=== PATIENT | female | born 1975 | race Caucasian/White ===

== ENCOUNTER 2020-10-20 09:43 | Emergency (ER) | payer BC, SELFPAY ==
[2020-10-20 09:45] VITALS: BP 165/97; PULSE 101; RESP 14; TEMP 37.2; O2SAT 99; BMI 38.0
--- NOTE | 2020-10-20 09:58 | HMH.EDUTC ---
[facility] Disposition Clinical Impression: Exposure to COVID-19 virus Sinusitis Qualifiers: Sinusitis location: unspecified location Chronicity: acute Recurrence: non-recurrent Qualified Code(s): J01.90 - Acute sinusitis, unspecified Disposition: Home, Self-Care Condition on Discharge: Good Instructions: Sinusitis, DI for Sinusitis, Preventing the Spread of Coronavirus Discharge Instructions Additional Instructions: Drink plenty of fluids. Take tylenol for pain or fever. Return if you begin to have difficulty breathing. Follow up with your regular doctor. GO TO THE ER FOR ANY WORSENING SYMPTOMS Prescriptions: Benzonatate [Tessalon Perle 100mg Cap] 100 mg PO TIDP PRN #30 cap PRN Reason: Cough Transmission Status: Received by [facility] Azithromycin [Z-Nick 250mg Tab*] 250 mg PO UD DOSE PK #6 tab Transmission Status: Received by [facility] Referrals: PCP,No [Primary Care Provider] - Forms: Work/School Release Time of Disposition: 10:14 Medical Decision Making - Medical Records Medical records reviewed: No: I reviewed the patient's medical records. - Dimas Inquiry Pt receiving controlled substance: No Vital Signs: 10/20/20 09:45 10/20/20 10:26 Temperature 98.9 F 98.9 F Temperature Source Oral Pulse Rate 101 H Pulse Rate [Right Brachial] 101 H Respiratory Rate 14 14 Blood Pressure 165/97 H Blood Pressure [Right Arm] 165/97 H Blood Pressure Mean [Right Arm] 119 Blood Pressure Source [Right Arm] Automatic Cuff Blood Pressure Position [Right Arm] Sitting 02 Sat by Pulse Oximetry 99 Oxygen Delivery Method Room Air Orders (Tests/Meds): ORDERS Category Date Time Status Covid-19 Nasal PCR ([facility]) Routine Lab 10/20/20 10:00 Received [facility] HPI - General Stated complaint: sinus possible bronchitis Time Seen by Provider: 10/20/20 09:58 Mode of Arrival: Wheelchair - History of Present Illness Provider Complaint: She states that she has had sinus congestion, bilateral ear pain, cough and chest congestion for the past 3 days. She had a negative covid test [facility] on [facility] (2 days ago). - Related Data Home Medications Medication Instructions Recorded Confirmed hydrocodone 7.5 mg-acetaminophen 1 tab PO Q6H PRN 04/12/18 10/20/20 300 mg tablet Nabumetone 750 mg PO BID 02/24/19 10/20/20 Previous Rx's Medication Instructions Recorded Azithromycin [Z-Nick 250mg Tab*] 250 mg PO UD DOSE PK #6 tab 10/20/20 Benzonatate [Tessalon Perle 100mg 100 mg PO TIDP PRN #30 cap 10/20/20 Cap] Allergies Allergy/AdvReac Type Severity Reaction Status Date / Time No Known Allergies Allergy Verified 02/24/19 19:05 [facility] History - Hepatitis A Screen Attestation statement:: This patient has been screened for Hepatitis A risk factors. I have reviewed the patient's past medical history: Yes Medical History: Reports:: Urinary Tract Infection Comment: back pain, sciatica Laterality Cases: Bilateral: Carpal Tunnel Release Amputation: No Fractures: No - Social History Smoking Status: Current every day smoker Tobacco Type: cigarettes # Packs/Day (cigarettes): 1 Alcohol Intake: never Substance Use Type: denies use Occupational Status: employed Family Hx:: Diabetes ROS Obtained: Yes All systems reviewed & no additional complaints - Constitutional Constitutional: Reports system reviewed and no additional complaints, except as docu - Eyes Eyes: Reports system reviewed and no additional complaints, except as docu - ENT Ears, Nose, Mouth, and Throat: Reports system reviewed and no additional complaints, except as docu - Cardiovascular Cardiovascular: Reports system reviewed and no additional complaints, except as docu - Respiratory Respiratory: Reports system reviewed and no additional complaints, except as docu - Gastrointestinal Gastrointestingal: Reports: system reviewed and no additional complaints, except
[2020-10-20 10:26] VITALS: BP 165/97; PULSE 101; RESP 14; TEMP 37.2; O2SAT 99
== END 2020-10-20 10:30 | disposition home or self-care (01) ==
PROVIDERS: Emergency Provider Nurse Practitioner Family
DX: Z20.822 Contact with and (suspected) exposure to COVID-19 (principal); J01.90 Acute sinusitis, unspecified; F17.210 Nicotine dependence, cigarettes, uncomplicated
CPT/HCPCS: 99202; G0463; U0003

== ENCOUNTER → 2021-04-17 15:06 | Outpatient (CLI) | payer BC, SELFPAY ==
--- NOTE | 2021-04-17 15:07 | MM_ITS ---
PROCEDURE: MM DIG SCREENING MAMM BI W/CAD Digital Breast Tomosynthesis Included CLINICAL INDICATION: Routine Screening Mammogram There is a history of breast patient's paternal grandmother. COMPARISON: MG CONRAD DIGITAL SCREEN BILATERAL MOBILE from 03/02/2018 outside study MG CONRAD NASH DIGITAL SCREEN BILATERAL from 03/14/2019 outside study TECHNIQUE: Standard CC and MLO images and 3D Tomosynthesis was obtained. R2 CAD reviewed. FINDINGS: Moderate scattered fibroglandular densities are seen throughout both no CAD markings. There is a benign-appearing macrocalcification right breast. There is a stable benign-appearing nodular density upper-outer quadrant right breast likely an intramammary node. There is no suspicious lesion in either breast and no suspicious microcalcifications. IMPRESSION: Moderate breast density with no suspicious lesions seen BI-RAD Category: 2 Benign Finding(s) FOLLOW-UP: 1YR 1 Year Follow-up (A letter has been sent to the patient regarding results of the study.) Dictated by: Dr. Jesus Flaherty MD 04/29/2021 07:48 Dr. Jesus Flaherty MD in [place] 04/29/2021 07:48
--- NOTE | 2021-04-17 15:07 | US_ITS ---
PROCEDURE: US TRANSVAGINAL CLINICAL INDICATION: LLQP and ovarian cyst Left-sided pelvic pain COMPARISON: US PTV US PELVIS-TRANSVAGINAL ONLY from 07/12/2016 FINDINGS: UTERUS: 8cm x 5cmx 4cm with a combined endometrial thickness of 11.4mm LEFT OVARY: [id number] with a volume of 10.5ml. RIGHT OVARY: [id number] with a volume of 6.8ml. There is a 1.8 cm left ovarian cyst with a small amount fluid along the anterior aspect of the left ovary. Hypoechoic 1.4 cm lesion noted in the uterine fundus anteriorly consistent with a fibroid. Heterogeneous area of echogenicity noted posteriorly within the body of the uterus at 1.4 cm consistent with a fibroid IMPRESSION: Two uterine fibroids. Endometrial thickness upper limits of normal. Small left ovarian cyst with a small amount of fluid adjacent to the left ovary Dictated by: Wei Laureano MD 04/20/2021 07:37 Wei Laureano MD in [place] 04/20/2021 07:37
== END ==
PROVIDERS: Visit Provider Nurse Practitioner Obstetrics & Gynecology
DX: R10.32 Left lower quadrant pain (principal); N83.209 Unspecified ovarian cyst, unspecified side; Z12.31 Encounter for screening mammogram for malignant neoplasm of breast
CPT/HCPCS: 76830; 77063; 77067

== ENCOUNTER 2021-04-22 10:33 | Emergency (ER) | payer BC, SELFPAY ==
[2021-04-22 10:42] VITALS: BP 148/93; PULSE 94; RESP 19; TEMP 36.9; O2SAT 96; BMI 38.0
[2021-04-22 10:56] LABS: Apearance,Urine Clear (Clear); Blood, Urine 2+ (Negative); Color,Urine Yellow (Yellow); Glucose,Urine (UA) Negative (Negative); Ketones,Urine Negative (Negative); Protein,Urine Negative (Negative)
[2021-04-22 10:57] LABS: Bilirubin,Urine Negative (Negative); UTC Leukocyte Esterase,Urine Negative (Negative); UTC Nitrate,Urine Negative (Negative); Urobilinogen,Urine 0.2 EU/dl (0.2)
--- NOTE | 2021-04-22 11:00 | HMH.EDUTC ---
[facility] [place] [facility] [place] Clinical Impression: Side pain Disposition: Home, Self-Care Condition on Discharge: Good Instructions: Ovarian Cyst, DI for Flank Pain Additional Instructions: Make sure to follow up with Dr Baig to discuss the finding on your ultra sound and mammogram Follow up with your Urologist for further testing and evaluation of cysts on Kidney Straight to ER if any life threatening symptoms Follow up with your Family Doctor if no improvement or any worsening of symptoms Return if needed Referrals: Provider,MD Martín [Primary Care Provider] - As needed Deven Fernandez MD [Staff Physician] - Danial Baig MD [Staff Physician] - Time of Disposition: 11:25 Medical Decision Making - Dimas Inquiry Pt receiving controlled substance: No Dimas was queried for this patient: No Vital Signs: 04/22/21 10:42 04/22/21 11:27 Temperature 98.5 F 98.4 F Temperature Source Oral Pulse Rate 89 Pulse Rate [Left] 94 H Respiratory Rate 19 18 Blood Pressure 139/93 H Blood Pressure [Right Arm] 148/93 H Blood Pressure Mean [Right Arm] 111 02 Sat by Pulse Oximetry 96 - Lab Data Lab results reviewed: Yes: I reviewed the patient's lab results. Lab Results 04/22/21 10:44: Urine Color Yellow, Urine Appearance Clear, Urine pH 7.0, Ur Specific [place] 1.020, Urine Protein Negative, Urine Glucose (UA) Negative, Urine Ketones Negative, Urine Blood 2+, Urine Nitrate Negative, Urine Bilirubin Negative, Urine Urobilinogen 0.2, Ur Leukocyte Esterase Negative Medical Decision Narrative: Patient reports history of blood in her urine States that she is suppose to see Urologist but hasnt seen them in awhile discussed with patient about transfer to the ED for further work up and evaluation and CT if warranted and patient declined state that she wanted to see if she had a UTI and would follow up with Dr Baig and Urology for further treatment and would return if needed [facility] [place] [facility] [place] - General Stated complaint: pain in left side Time Seen by Provider: 04/22/21 11:00 Mode of Arrival: Ambulatory Source of Information: Patient Limitations: No Limitations Description of Symptoms (Recalled from Triage Doc. by RN): pt c/o LLQ and ovary pain. pt states she had an ultrasound tuesday ordered by Dr. Baig but has not received the report yet. pt has a hx of ovarian cysts and states this feels similar. HEENT Symptoms (Recalled from RN notes): No Resp Symptoms (Recalled from RN notes): No Skin Symptoms (Recalled from RN notes): No MS Symptoms (Recalled from RN notes): No Functional Status (Recalled from RN notes): na - History of Present Illness Provider Complaint: Patient state that she has been having pain in her left side and left lower quad area like she has had before with Ovarian Cyst States that she has history of ovarian cyst and this pain is similar to what she has had before State that last night she was up most of the night with the pain but pain is better this morning wanted to get her urine checked to see if she may have a Kidney infection - Related Data Home Medications Medication Instructions Recorded Confirmed hydrocodone 7.5 mg-acetaminophen 1 tab PO Q6H PRN 04/12/18 04/14/21 300 mg tablet Nabumetone 750 mg PO BID 02/24/19 04/14/21 Allergies Allergy/AdvReac Type Severity Reaction Status Date / Time Penicillins Allergy Verified 04/22/21 10:47 - Worker's Comp Is this a Worker's Comp case?: No [facility] History - Hepatitis A Screen Drug use history?: No High risk sexual behaviors?: No History of sexually transmitted infection?: No Currently employed?: No Childcare worker?: No Do you have indoor plumbing?: Yes Do you have electricity?: Yes Attestation statement:: This patient has been screened for Hepatitis A risk factors. I have reviewed the patient's past medical history: Yes Medical History: Reports:: Urinary Tract Infection Comment: back pain, sciatica Laterality Cases: Bilateral: Carpal Tu
[2021-04-22 11:27] VITALS: BP 139/93; PULSE 89; RESP 18; TEMP 36.9
== END 2021-04-22 11:33 | disposition home or self-care (01) ==
PROVIDERS: Emergency Provider Nurse Practitioner
DX: R10.32 Left lower quadrant pain (principal); Z88.0 Allergy status to penicillin; F17.210 Nicotine dependence, cigarettes, uncomplicated
CPT/HCPCS: 81003; 99202; G0463

== ENCOUNTER → 2021-05-01 06:40 | Outpatient (CLI) | payer BC, SELFPAY ==
--- NOTE | 2021-05-01 06:43 | CT_ITS ---
PROCEDURE: CT ABDOMEN PELVIS WO CON CLINICAL INDICATION: HEMATURIA,FLANK PAIN COMPARISON: No exams were available for comparison TECHNIQUE: Axial images obtained with sagittal and coronal reformats. All CT scans at the facility use one or more dose reduction, viz: automated exposure control, ma/kV adjustment per patient size (including targeted exams where dose is matched to indication, i.e. head), or iterative reconstruction technique. FINDINGS: LOWER THORAX: There is a cyst in the right lung base. Otherwise the visualized lung bases are clear. ABDOMEN & PELVIS: Evaluation of the upper abdominal solid viscera is limited due to lack of intravenous contrast. The liver, adrenal glands, pancreas and right kidney are unremarkable. The left kidney demonstrates a focal hypodense lesion with minor rim calcification in the superior pole measuring 2.2 x 2.4 centimeters, most likely represents a cyst. No evidence of calculi in the bilateral ureters or pelvicalyceal system. No hydronephrosis. Bladder is under distended limiting evaluation. Multiple splenic calcifications are noted, likely sequela of prior granulomatous disease. Colonic diverticula are noted without evidence of diverticulitis. Otherwise the large and small bowel loops demonstrate no focal wall thickening, obstruction or adjacent inflammatory changes. The appendix is normal. The uterus and pelvic structures are unremarkable. Atherosclerotic vascular calcification is noted. No significant mesenteric or retroperitoneal adenopathy. Small fat containing umbilical hernia is noted. Minor degenerative changes of the lower lumbar spine. IMPRESSION: No evidence of renal or ureteric calculi. Focal hypodense lesion in the left kidney with rim calcification, raises the concern for complex cyst. Ultrasound of the kidney should be considered for further evaluation. Colonic diverticula without evidence of diverticulitis. Dictated by: Margo Weaver 05/01/2021 08:42 Margo Weaver in [place] 05/01/2021 08:42
== END ==
PROVIDERS: Visit Provider Urology
DX: R10.9 Unspecified abdominal pain (principal); R31.9 Hematuria, unspecified
CPT/HCPCS: 74176

== ENCOUNTER → 2021-05-06 13:13 | Outpatient (CLI) | payer BC, SELFPAY | PROVIDERS: Visit Provider Urology | DX: Z20.822 Contact with and (suspected) exposure to COVID-19 (principal) | CPT/HCPCS: U0003 ==

== ENCOUNTER 2021-05-08 08:15 | Day surgery (SDC) | payer BC, SELFPAY ==
[2021-05-06 10:27] VITALS: BMI 38.0
[2021-05-08] VITALS (9 sets, daily range): BP systolic 120–164; BP diastolic 74–98; PULSE 64–76; RESP 12–18; TEMP 36.1–36.6; O2SAT 94–99
[2021-05-08 09:10] LABS: HCG Qualitative, Serum Negative (Negative)
--- NOTE | 2021-05-08 11:14 | HMH.ANESCL ---
[facility] Anesthesia Checklist - Structural Data Admitted From: Home Planned Operative Procedure/s: cysto w urethral dilation Consent for Planned Operative Procedure(s) Verified: Yes - Additional verifications Anesthesia Reactions: No Hx Blood Transfusions: No Blood Transfusion Reaction: No - Airway Assessment C-Spine Mobility Assessed: Yes TMJ Mobility Assessed: Yes Dentition: Good Dentition - Neurological Assessment Level of Consciousness: Awake, Alert, Appropriate - Anesthesia Plan Anesthesia Risk discussed: Yes Anesthesia Plan: Verified ASA Class: III Anesthesia Type: General [facility] History I have reviewed the patient's past medical history: Yes Medical History: Reports:: Urinary Tract Infection Denies:: Cancer, Diabetes Mellitus Type 1, Diabetes Mellitus Type 2, Internal Pacemaker, MRSA, Seizures *Have you ever received a pneumonia vaccine?: No *Have you received a flu vaccine this season?: No Other Medical History: Denies: Blood Transfusion Reaction Anesthesia experience/problems:: none Laterality Cases: Bilateral: Carpal Tunnel Release Other Surgeries: Yes: No Previous Surgery, Colonoscopy. No: Pacemaker Amputation: No Fractures: No - *Social History Last grade of school completed: High school graduate Smoking Status: Current every day smoker Tobacco Type: cigarettes # Packs/Day (cigarettes): 15 Alcohol Intake: current Alcohol Intake Frequency:: a few times a week Substance Use Type: denies use *Occupational Status:: employed Housing: house Household Members: spouse, family *Travel in the last 8 weeks: None Family Hx:: Diabetes, Hyperlipidemia, Hypertension
--- NOTE | 2021-05-08 11:15 | P.PN_ITS ---
[facility] Anesthesia Record Part I Intake, IV Amount: 500 Estimated blood loss (mL): 0 Urine output (mL): 0 Blood Pressure: 126/78 SaO2: 95 Pulse Rate: 64 Respiratory Rate: 12 Temperature: 97.8 F Patient is:: Awake, Stable Stable to PACU at:: 11:05
--- NOTE | 2021-05-08 13:03 | P.OP_ITS ---
Date of procedure: 05/08/21 Pre-op Diagnosis:: Urinary frequency, history of urethral stenosis, microscopic hematuria Post-op Diagnosis:: Chronic cystitis findings Procedure performed:: Cystoscopy with urethral dilation Surgeon:: Deven Fernandez MD PUBLIC WORKS DIRECTOR:: Rashaun Amanda Anesthesia: MAC Estimated blood loss (mL): 0 Clinical Note:: Patient is a 45-year-old white female with a history of urethral stenosis also has urinary symptoms of urinary frequency as well as microscopic hematuria. Operative findings:: There were a few 1 cm patches of erythema in the bladder. These did not appear to be carcinoma in situ that appeared inflammatory. Operative note:: Patient taken to the operating room after informed consent was obtained. She was placed on the operating table in the supine position and monitored anesthesia care administered. She was then placed into the dorsal lithotomy position and prepped and draped in the standard surgical fashion. After analgesia the 22 Khurram passed into the urethra and into the bladder without difficulty. The bladder was examined in a systematic fashion. There were some few small reddish patches in the bladder 1 superiorly, one inferiorly and the bilaterally. They were small and about 1 cm in size they were roundish but not raised. No trabeculation, cellules or diverticula noted. The ureteral orifices in their normal anatomic position with clear efflux of urine. The bladder neck and urethra were within normal limits. The scope removed and the urethra was then dilated with the 24 and 26 Sinhala female sounds. There was no resistance to passage of the sounds. Urojet then placed into the urethra. The patient tolerated procedure well there are no complications. Patient recent CT scan showed only a stable 2 cm cyst in her left kidney which has been there for many years. And been to place her on a course of Macrobid for a month and see her back in the office in 1 month. Condition: stable Disposition: same day Specimens:: None Complications:: None
--- NOTE | 2021-05-11 07:41 | HMH.ANESII ---
[facility] Anesthesia Record Part II Discharge Time: 11:35 Destination: Surgical Day Care (OP Surgery) PACU nurse assessment reviewed?: Yes Patient Condition:: Good Anesthesia Complications:: None Swallowing reflex intact?: Yes Cyanosis?: No Blood Pressure: 128/82 Pulse Rate: 71 Temperature: 97 F Mental Status: Alert & Oriented Pain level:: 0 Nausea and/or vomitting:: None Intake, IV Amount: 0
[2021-05-11 07:42] VITALS: BP 128/82; PULSE 71; TEMP 36.1
== END 2021-05-08 12:10 | disposition home or self-care (01) ==
LOC: OR 08:17
PROVIDERS: Visit Provider Urology
PROC: 0TJB8ZZ Inspection of Bladder, Via Natural or Artificial Opening Endoscopic (ICD-10-PCS; CPT 52000; principal; 2021-05-08 10:00)
DX: L53.8 Other specified erythematous conditions; N32.89 Other specified disorders of bladder; Z87.448 Personal history of other diseases of urinary system; Z72.0 Tobacco use; Z83.3 Family history of diabetes mellitus; Z82.49 Family history of ischemic heart disease and other diseases of the circulatory system; Z83.438 Family history of other disorder of lipoprotein metabolism and other lipidemia; Z88.0 Allergy status to penicillin
CPT/HCPCS: 52281; 84703; 96374

== ENCOUNTER → 2021-05-15 11:24 | Outpatient (CLI) | payer BC, SELFPAY ==
[2021-05-15 12:57] LABS: Triiodothryronine (T3) Uptake 33 % (23.5-40.5)
[2021-05-15 12:58] LABS: Free Thyroxine Index 2.8 ug/dL (5.93-13.13); T4 (Thyroxine) 8.4 ug/dl (5.53-11.0)
[2021-05-15 13:11] LABS: Thyroid Stimulating Hormone 1.11 uIU/mL (0.465-4.68)
[2021-05-16 08:29] LABS: Estradiol 48.6 pg/mL (.); FSH 43.3 mIU/mL (.); LH 33.6 mIU/mL (.)
== END ==
PROVIDERS: Visit Provider Nurse Practitioner Obstetrics & Gynecology
DX: N95.1 Menopausal and female climacteric states (principal); R53.83 Other fatigue; R53.82 Chronic fatigue, unspecified
CPT/HCPCS: 36415; 82670; 83001; 83002; 84436; 84443; 84479

== ENCOUNTER → 2021-06-23 16:56 | Outpatient (CLI) | payer BC, SELFPAY | PROVIDERS: Visit Provider Surgery | DX: Z20.822 Contact with and (suspected) exposure to COVID-19 (principal) | CPT/HCPCS: C9803; U0003; U0005 ==

== ENCOUNTER 2021-06-25 09:18 | Day surgery (SDC) | payer BC, SELFPAY ==
[2021-06-24 14:55] VITALS: BMI 38.0
[2021-06-25 09:42] VITALS: BP 127/69; PULSE 78; RESP 20; TEMP 36.6; O2SAT 97
[2021-06-25 10:00] LABS: Urine Pregnancy, HCG Qual. Negative (Negative)
--- NOTE | 2021-06-25 10:11 | HMH.ANESCL ---
[facility] Anesthesia Checklist - Patient Identification Patient Identification: Arm Band - Structural Data Admitted From: Home Planned Operative Procedure/s: colonoscopy Consent for Planned Operative Procedure(s) Verified: Yes Verified Documents: Surgical Consent, History and Physical - NPO Status Verified Time NPO: 00:00 - Additional verifications Anesthesia Reactions: No Hx Blood Transfusions: No Blood Transfusion Reaction: No - Airway Assessment C-Spine Mobility Assessed: Yes (mp2) TMJ Mobility Assessed: Yes Dentition: Good Dentition - Neurological Assessment Level of Consciousness: Awake, Alert - Anesthesia Plan Anesthesia Risk discussed: Yes Anesthesia Plan: Verified ASA Class: II Anesthesia Type: MAC [facility] History I have reviewed the patient's past medical history: Yes Medical History: Reports:: Urinary Tract Infection Denies:: Cancer, Diabetes Mellitus Type 1, Diabetes Mellitus Type 2, Internal Pacemaker, MRSA, Seizures *Have you ever received a pneumonia vaccine?: No *Have you received a flu vaccine this season?: Yes (2019) Other Medical History: Denies: Blood Transfusion Reaction Anesthesia experience/problems:: nac Laterality Cases: Bilateral: Carpal Tunnel Release Other Surgeries: Yes: Colonoscopy. No: Pacemaker Amputation: No Fractures: No - *Social History Last grade of school completed: High school graduate Smoking Status: Current every day smoker Tobacco Type: cigarettes # Packs/Day (cigarettes): 1 Alcohol Intake: never Alcohol Intake Frequency:: a few times a week Substance Use Type: denies use *Occupational Status:: unemployed Housing: house Household Members: none *Travel in the last 8 weeks: None Family Hx:: Diabetes, Hyperlipidemia, Hypertension
[2021-06-25 10:27] VITALS: O2SAT 97
[2021-06-25 11:11] VITALS: BP 134/87; PULSE 72; RESP 18; O2SAT 99
--- NOTE | 2021-06-25 11:14 | P.PCN_ITS ---
- Procedure: Date: 06/25/21 Patient Date of :: 1975 Procedure Performed:: Colonoscopy with polypectomy Indications:: Screening Performing Provider:: Jesse Jaquez MD Referring Provider:: . Sedation:: Monitored anesthesia care Procedure:: After informed consent was obtained the patient was taken to the endoscopy suite. Sedation ensued after the patient was transferred to the left lateral decubitus position. Pulse, blood pressure, and oxygen saturation were monitored throughout the procedure. Digital rectal exam revealed no significant ab normality. The colonoscope was placed in position. The entire colon was evaluated. The colonoscope was carefully removed and the patient was transferred to recovery in stable condition. Please see findings and specimens below for detail. Findings:: Hemorrhoidal cushions/tags Bowel preparation fair to moderate Profound spasticity/lack of relaxation Polyps (see specimens) Specimens:: Cecal polyp (snare) Right colon polyp (snare) Polyp at 35 cm (snare) Recommendations:: Timing of repeat colonoscopy is pending pathology but will likely be between 1-2 years secondary to slightly-limiting bowel preparation and profound spasticity/lack of relaxation. Complications:: No immediate Estimated blood obtained (mL): 1
[2021-06-25 11:22] VITALS: BP 134/87; PULSE 72; RESP 18; O2SAT 99
[2021-06-25 11:40] VITALS: BP 134/82; PULSE 75; RESP 18; O2SAT 99
[2021-06-25 11:41] VITALS: BP 134/82; PULSE 75; RESP 18; O2SAT 100
== END 2021-06-25 11:42 | disposition home or self-care (01) ==
LOC: OUTP 09:19
PROVIDERS: PCP Nurse Practitioner Obstetrics & Gynecology; Visit Provider Surgery
PROC: 0DJD8ZZ Inspection of Lower Intestinal Tract, Via Natural or Artificial Opening Endoscopic (ICD-10-PCS; CPT 45385; principal; 2021-06-25 10:30)
DX: K63.5 Polyp of colon (principal); K58.9 Irritable bowel syndrome, unspecified; Z12.11 Encounter for screening for malignant neoplasm of colon; K64.0 First degree hemorrhoids; Z87.440 Personal history of urinary (tract) infections; Z72.0 Tobacco use; Z83.3 Family history of diabetes mellitus; Z82.49 Family history of ischemic heart disease and other diseases of the circulatory system; Z83.438 Family history of other disorder of lipoprotein metabolism and other lipidemia; Z88.0 Allergy status to penicillin
CPT/HCPCS: 45385; 81025

== ENCOUNTER → 2021-08-29 11:15 | Outpatient (CLI) | payer BC, SELFPAY | PROVIDERS: Visit Provider Nurse Practitioner Family | DX: Z20.822 Contact with and (suspected) exposure to COVID-19 (principal) | CPT/HCPCS: C9803; U0003; U0005 ==

== ENCOUNTER → 2022-08-17 12:14 | Outpatient (CLI) | payer BC, SELFPAY ==
--- NOTE | 2022-08-17 12:15 | MM_ITS ---
PROCEDURE INFORMATION: Exam: MG Bilateral Screening 3D Mammography Exam date and time: 08/17/2022 12:09 PM Age: 47 years old Clinical indication: Screening examination TECHNIQUE: Imaging protocol: Bilateral Screening tomosynthesis and 2D mammography including computer-aided detection (CAD) when performed. COMPARISON: 1. MG MM DIG SCREENING MAMM BI W/CAD 04/17/2021 4:07 PM 2. MG CONRAD NASH DIGITAL SCREEN BILATERAL 03/14/2019 1:30 PM FINDINGS: MAMMOGRAPHY: Breast composition: There are scattered areas of fibroglandular density. Mass: None. Architectural distortion: None. Calcifications: No suspicious calcifications. Asymmetric density: None. Skin thickening: None. Axillary adenopathy: None. IMPRESSION: No mammographic evidence of malignancy. Annual screening is recommended unless otherwise clinically indicated. ASSESSMENT: BI-RADS Category 1: Negative
== END ==
PROVIDERS: Visit Provider Nurse Practitioner Obstetrics & Gynecology
DX: Z12.31 Encounter for screening mammogram for malignant neoplasm of breast (principal)
CPT/HCPCS: 77063; 77067

== ENCOUNTER → 2022-12-02 22:43 | Outpatient (CLI) | payer BC, SELFPAY | PROVIDERS: PCP Student in an Organized Health Care Education/Training Program; Visit Provider Student in an Organized Health Care Education/Training Program | DX: N39.0 Urinary tract infection, site not specified (principal) | CPT/HCPCS: 87086 ==

== ENCOUNTER → 2022-12-03 12:44 | Outpatient (CLI) | payer BC, SELFPAY ==
--- NOTE | 2022-12-03 12:46 | CT_ITS ---
FINAL REPORT TECHNIQUE: Axial images through the abdomen and pelvis were performed without contrast. This study was performed with techniques to keep radiation doses as low as reasonably achievable, (ALARA). Individualized dose reduction techniques using automated exposure control or adjustment of mA and/or kV according to the patient's size were employed. CLINICAL HISTORY: hematuria, flank pain COMPARISON: 05/01/2021 FINDINGS: ABDOMEN: The lung bases are clear. The heart size is normal. There is fatty infiltration of the liver. The spleen is normal. No adrenal mass is identified. The aorta is normal in caliber. There is no significant free fluid or adenopathy. There is a 21 mm cystic mass in the left kidney with small calcification in its wall, favor mildly complicated cyst. There is no nephrolithiasis. There is no hydronephrosis. Note is made of moderate vascular calcification. There is small umbilical hernia containing fat. PELVIS: The appendix is normal. The urinary bladder is unremarkable. There is no significant free fluid or adenopathy. IMPRESSION: Left renal mass, favor mildly complicated cyst. If indicated, renal mass protocol CT could further evaluate. Reviewed, Interpreted and Dictated by Adam Shell III, MD Transcribed by Katja Taylor Authenticated and [facility]
== END ==
LOC: RAD 12:46
PROVIDERS: PCP Student in an Organized Health Care Education/Training Program; Visit Provider Student in an Organized Health Care Education/Training Program
DX: R10.9 Unspecified abdominal pain (principal); R31.9 Hematuria, unspecified
CPT/HCPCS: 74176

== ENCOUNTER → 2023-02-10 12:49 | Outpatient (CLI) | payer BC, SELFPAY ==
--- NOTE | 2023-02-10 12:49 | US_ITS ---
FINAL REPORT CLINICAL HISTORY: Pelvic Pain COMPARISON: 04/17/2021 FINDINGS: Technique: Transabdominal and transvaginal images of the pelvis were obtained. Findings: The uterus is normal in size. There are multiple hypoechoic areas in the uterus measuring up to 1.6 cm consistent with multiple fibroids. The endometrium is unremarkable. The right ovary is unremarkable. The left ovary contains a small follicle. IMPRESSION: Fibroid uterus with individual fibroids measuring up to 1.6 cm. Reviewed, Interpreted and Dictated by Milind Roa MD Transcribed by Kimberley Romeo Authenticated and [facility]
== END ==
LOC: RAD 12:49
PROVIDERS: PCP Student in an Organized Health Care Education/Training Program; Visit Provider Nurse Practitioner Obstetrics & Gynecology
DX: R10.2 Pelvic and perineal pain (principal)
CPT/HCPCS: 76830

== ENCOUNTER → 2023-02-17 14:09 | Outpatient (CLI) | payer BC, SELFPAY ==
--- NOTE | 2023-02-17 14:23 | ECG_ITS ---
APPROVED REPORT Exam: Resting ECG HR:86 bpm ECG Measurements Heart Rate 86 AXES OR 152 P 62 QRSd 105 QRS 91 QT 369 T 51 QTc 412 Conclusion SINUS RHYTHM BORDERLINE RIGHT AXIS DEVIATION [QRS AXIS > 90] NONSPECIFIC ST & T-WAVE ABNORMALITY BORDERLINE ECG UNCONFIRMED REPORT Electronically signed by : Ronal Mendoza MD 02/18/2023 15:02:22
[2023-02-17 15:26] LABS: Basophils # 0.1 K/mm3 (0-0.2); Basophils % 0.5 % (0.1-2.0); Eosinophils # 0.3 K/mm3 (0.0-0.4); Eosinophils % 3.1 % (0.1-12.0); Hematocrit 40.9 % (37.0-47.0); Hemoglobin 13.2 g/dL (12.2-16.2); Lymphocytes # 3.3 K/mm3 (0.7-4.5); Lymphocytes % 38.7 % (10-50); Mean Corpuscular HGB Conc 32.2 g/dL (31.8-35.4); Mean Corpuscular Hemoglobin 29.2 pg (27.0-31.2); Mean Corpuscular Volume 90.5 fl (81-99); Mean Platelet Volume 7.4 fl (7.4-10.4); Monocytes # 0.4 K/mm3 (0.1-1.0); Monocytes % 5.2 % (1.7-9.3); Neutrophils # 4.4 K/mm3 (1.8-7.8); Neutrophils % 52.5 % (37.0-80.0); Platelet Count 346 K/mm3 (142-424); Red Blood Count 4.53 M/mm3 (4.20-5.40); Red Cell Distribution Width 14.6 % (11.5-17.5); White Blood Count 8.4 K/mm3 (4.8-10.8)
[2023-02-17 15:44] LABS: Alanine Aminotransferase 28 U/L (12-78); Albumin Level 4.1 g/dl (3.5-5.0); Albumin/Globulin Ratio 1.5 (1.1-1.8); Alkaline Phosphatase 74 U/L (38-126); Aspartate Amino Transferase 33 U/L (14-36); Bilirubin,Total 0.3 mg/dl (0.2-1.3); Blood Urea Nitrogen 11 mg/dl (7-17); Calcium 9.1 mg/dl (8.4-10.2); Carbon Dioxide 30 mmol/L (22.0-30.0); Chloride 94 mmol/L (98-107); Estimated Glomerular Filt Rate 107 ml/min (>60); GFR (African American) 129 ML/MIN (>60); Globulin 2.8 g/dL (1.3-3.2); Glucose 141 mg/dl (74-100); Sodium 136 mmol/L (136-145); Total Protein,Serum 6.9 g/dl (6.3-8.2)
[2023-02-17 16:11] LABS: HCG,Quantitative 6 mIU/ml (0-5.42)
== END ==
LOC: LAB 14:14
PROVIDERS: PCP Student in an Organized Health Care Education/Training Program; Visit Provider Nurse Practitioner Obstetrics & Gynecology
DX: Z01.818 Encounter for other preprocedural examination (principal); D25.9 Leiomyoma of uterus, unspecified
CPT/HCPCS: 36415; 80053; 84702; 85025; 93005

== ENCOUNTER → 2023-02-21 07:57 | Outpatient (CLI) | payer BC, SELFPAY ==
[2023-02-21 10:03] LABS: HCG,Quantitative 6 mIU/ml (0-5.42)
== END ==
PROVIDERS: PCP Student in an Organized Health Care Education/Training Program; Visit Provider Nurse Practitioner Obstetrics & Gynecology
DX: Z01.812 Encounter for preprocedural laboratory examination (principal); D25.9 Leiomyoma of uterus, unspecified
CPT/HCPCS: 36415; 84702

== ENCOUNTER 2023-02-22 07:45 | Observation (INO) | payer BC, SELFPAY ==
[2023-02-18 13:54] VITALS: BMI 37.4
[2023-02-22] VITALS (21 sets, daily range): BP systolic 92–150; BP diastolic 55–91; PULSE 63–84; RESP 14–20; TEMP 36.1–43; O2SAT 90–98
[2023-02-22 06:46] LABS: Coronavirus 19, PCR Not Detected (NotDetected); Influenza A, PCR Not Detected (NotDetected); Influenza B, PCR Not Detected (NotDetected)
[2023-02-22 06:49] LABS: Urine Pregnancy, HCG Qual. Negative (Negative)
--- NOTE | 2023-02-22 07:11 | EXP.ANES.CKL ---
[facility] Disclaimer: The information contained in this section may have been updated after the patient was seen, as this information can be updated by other users. Medical History Back pain Surgical History History of carpal tunnel surgery Family History Mother Cancer Social History Smoking Status: Current every day smoker tobacco type: cigarettes packs per day: 1 years smoked: 15 second hand exposure: No alcohol intake: never substance use type: denies use current occupational status: employed Travel in the last 8 weeks: None household members: none housing: house current occupation: [employer] current occupational exposures/hazards: No caffeine: Yes [facility] Anesthesia Checklist Patient Identification Patient Identification: Arm Band and Verbal (Name & ) Structural Data Admitted From: Home Planned Operative Procedure/s: [facility] Consent for Planned Operative Procedure(s) Verified: Yes NPO Status Verified Time NPO: 00:00 Additional verifications Anesthesia Reactions: No Hx Blood Transfusions: No Blood Transfusion Reaction: No Airway Assessment C-Spine Mobility Assessed: Yes TMJ Mobility Assessed: Yes Dentition: Good Dentition Neurological Assessment Level of Consciousness: Awake Hx Seizures: No Numbness or tingling in extremities: No Anesthesia Plan Anesthesia Risk discussed: Yes Anesthesia Plan: Verified ASA Class: II Anesthesia Type: General
--- NOTE | 2023-02-22 09:20 | HMH.PHAINT1 ---
Pharmacy Intervention Comments: MEDICATION RECONCILIATION COMPLETED ON PATIENT USING EXTERNAL FILL HISTORY FROM PHARMACY. -ARFFI JIMENES, ALYD
--- NOTE | 2023-02-22 10:24 | P.PNANES_ITS ---
[facility] Anesthesia Record Part I Anesthesia Record I Intake, IV Amount: 700 Estimated blood loss (mL): 100 Urine output (mL): 50 Blood Pressure: 94/55 SaO2: 92 Pulse Rate: 67 Respiratory Rate: 14 Temperature: 97.5 F Patient is:: Drowsy and Oral/Nasal airway Stable to PACU at:: 10:25
--- NOTE | 2023-02-22 10:25 | EXP.OP.NOTE ---
Date of procedure: 02/22/23 Pre-op Diagnosis:: Pelvic pain, fibroid uterus, family history of endometrial carcinoma Post-op Diagnosis:: Pelvic pain, fibroid uterus, family history of endometrial carcinoma Procedure performed:: Laparoscopically assisted vaginal hysterectomy and bilateral salpingo-oophorectomy Surgeon:: Danial Baig MD Fusing Machine Operator(s):: Dr. Laureano REPAIR CAMERAMAN:: José Miguel Avila Anesthesia: GETA Estimated blood loss (mL): 100 Clinical Note:: She is a 47-year-old 0 para 0 lady who complains of lower abdominal pain. The pain comes and goes. Ultrasound confirmed that she had at least 3 fibroids in her uterus. She was also concerned because her mother had endometrial carcinoma and she wanted to have a complete hysterectomy as a result of this as well. Operative findings:: She had an anteverted slightly bulky uterus. The ovaries appeared atrophic. The tubes appeared normal. The rest the pelvis appeared normal. There was a small amount of endometriosis at the top of the vagina and rectovaginal septum area. There was 1 spot of endometriosis on the right pelvic sidewall just above the ureter. Operative note:: She was taken to the operating room where general anesthesia was found be adequate. She was prepped and draped in normal sterile fashion in the semilithotomy position. A weighted speculum was placed in the vagina and the anterior lip of the cervix was grasped with a tenaculum. An Avuncular was placed within the cervix but I was not able to get the device to go completely to the fundus of the uterus. I had tried multiple attempts prior to this with Anne dilators and small pediatric dilators. I then elected to perform a laparoscopically assisted vaginal hysterectomy and bilateral salpingo-oophorectomy instead of the total laparoscopic hysterectomy. An acorn uterine manipulator was placed an acorn uterine manipulator was then placed within the cervical os. I then changed gloves. I injected 10 cc of 0.5% ropivacaine around the umbilicus and made a small incision within the umbilicus. I inserted a Veress needle into the abdominal cavity. The abdominal cavity was then insufflated with carbon dioxide gas to a pressure of 20 mmHg. I then inserted an 11 mm trocar under direct vision. I injected through and through the pubic hairline, made a small incision here and inserted a 5 mm trocar under direct vision. I identified the inferior epigastric arteries on the left side, went lateral to these and injected through and through. I then made a small incision and inserted an 11 mm trocar under direct vision. A similar 11 mm trocar was placed on the right side. The left round ligament was then grasped and cut through with harmonic scalpel. This was followed by opening up the peritoneum anteriorly to the midline. I then grasped the tube on the left side and cut through this. This is followed by cutting through the left utero-ovarian ligament. I used Harmonic scalpel on the coagulation mode. I then took down the posterior aspect of the broad ligament to the level of the uterosacral ligament. I then skeletonized the uterine arteries on the left side and placed hemoclips on these. Using the harmonic scalpel on coagulation mode adjacent to the cervix I then took down these uterine arteries. I then further freed up the bladder anteriorly and laterally on the left side. I freed up the left ovary and tube along its infundibulopelvic ligament and then applied to Endoloops to the infundibulum pelvic ligament. I then cut away the ovary and tube and placed this in the pelvis to be retrieved later. I then turned my attention to the right side where I grasped the right round ligament and using the harmonic scalpel to then cut through the right round ligament. I then took down the anterior peritoneum to the midline joining up with the other side. I further dissected the bladder off. The posterior aspect of the right broad ligament was then taken down wit
--- NOTE | 2023-02-22 10:43 | EXP.HP ---
History of Present Illness *Admission Date: 02/22/23 *Reason for visit:: Fibroid uterus, pelvic pain, LAVH BSO *History of present illness: She is a 47-year-old 0 para 0 lady who has pelvic pain. She also was seen to have a fibroid uterus. Her mother had endometrial cancer and she wanted to have a hysterectomy as result of this. After having discussed the risks and benefits we elected to admit her for a laparoscopic-assisted vaginal hysterectomy and bilateral salpingo-oophorectomy. [facility] Disclaimer: The information contained in this section may have been updated after the patient was seen, as this information can be updated by other users. Medical History Back pain Surgical History History of carpal tunnel surgery Family History Mother Cancer Social History Smoking Status: Current every day smoker tobacco type: cigarettes packs per day: 1 years smoked: 15 second hand exposure: No alcohol intake: never substance use type: denies use current occupational status: employed Travel in the last 8 weeks: None household members: none housing: house current occupation: [employer] current occupational exposures/hazards: No caffeine: Yes Review of Systems Review of Systems Review of systems:: pertinent systems reviewed and negative unless documented below Meds Home Medications and Allergies Home Medications Medication Instructions Recorded Confirmed Type nabumetone 750 mg tablet 750 mg PO BID back pain 02/24/19 02/22/23 History omega-3 fatty acids-fish oil 300 1 cap PO DAILY Supplement 05/08/21 02/22/23 History mg-1,000 mg capsule sertraline 25 mg tablet 25 mg PO DAILY mood 02/18/23 02/22/23 History hydrocodone 7.5 mg-acetaminophen 1 tab PO Q6HP PRN Moderate Pain 02/22/23 02/22/23 History 325 mg tablet (Scale Score 5-6) New Prescriptions to Start Prescriptions: Allergies Allergy/AdvReac Type Severity Reaction Status Date / Time Penicillins Allergy Verified 02/22/23 06:16 Exam Data for Last 24 hours Vital signs and Labs for Last 24 Hours: Temp Pulse Resp BP Pulse Ox 97.5 F L 67 14 94/55 L 96 02/22/23 10:25 02/22/23 10:25 02/22/23 10:25 02/22/23 10:25 02/22/23 06:21 Laboratory Results - last 24 hr 02/22/23 06:08: Urine HCG, Qual Negative 02/22/23 06:30: SARS-CoV-2 (PCR) Not detected, Influenza A Untype (PCR) Not detected, Influenza Type B (PCR) Not detected I & O for Last 24 hours: Intake & Output 02/19/23 02/20/23 02/21/23 02/22/23 11:59 11:59 11:59 11:59 Intake Total 700 / 700 Balance 700 / 700 Weight 276 lb Constitutional Constitutional: no acute distress *Routine HEENT Exam Head: Present normocephalic Eye: Present EOMI and PERRL ENT: Present mucous membranes moist *Routine Neck Exam Neck: Present supple; Absent lymphadenopathy *Routine Respiratory Exam Respiratory: Present CTA bilaterally *Routine Cardiovascular Exam Cardiovascular: Present RRR *Routine Abdominal Exam Abdominal: Present soft and normoactive bowel sounds; Absent tenderness *Routine Rectal Exam Rectal:: deferred *Routine Genitalia Exam Genitalia:: deferred *Routine Extremities Exam Extremities: Absent cyanosis, clubbing or edema *Routine Skin Exam Skin: Present warm; Absent rash *Routine Neurological Exam Neurological: Present alert and oriented X3 Assessment and Plan *Assessment and plan (1) Uterine fibroid: Status: Acute Category: Medical Code(s): D25.9 - Leiomyoma of uterus, unspecified (2) Family history of uterine cancer: Status: Acute Category: Medical Code(s): Z80.49 - Family history of malignant neoplasm of other genital organs (3) Pelvic pain: Status: Acute Category:
[2023-02-22 13:11] LABS: Microscopic,Cath URINE MICROSCOPIC (MICROSCOPIC)
[2023-02-22 13:22] LABS: Appearance,Urine/Cath CLEAR (Clear); Bilirubin,Cath Negative (Negative); Blood, Urine/Cath 2+ (Negative); Color,Urine/Cath YELLOW (Yellow); Glucose,Urine/Cath (UA) Negative (Negative); Ketones,Urine/Cath Negative (Negative); Leukocyte Esterase,Cath Negative (Negative); Nitrate,Cath Negative (Negative); Protein,Urine/Cath 1+ (Negative); Specific Gravity, Urine/Cath >= 1.030 (1.005-1.030); Urobilinogen,Cath 0.2 EU/dl (0.2)
[2023-02-22 13:39] LABS: Bacteria,Urine/Cath 3+ /lpf; Mucus,Urine/Cath 1+ /lpf; WBC,Urine/Cath Occasional #/hpf (0-3)
[2023-02-22 16:22] LABS: Hematocrit 39.1 % (37.0-47.0); Hemoglobin 12.4 g/dL (12.2-16.2)
--- NOTE | 2023-02-22 18:53 | PC.NURSE ---
A&OX4. TOLERATING RA WELL. PT HAS BEEN RESTING INTERMITTENTLY THIS SHIFT. HAS C/O CRAMPING X2, TX PER MAR. ALSO MEDICATED FOR NAUSEA. NO OTHER C/O OR NEEDS NOTED AT THIS TIME. PT HAS HAD FAMILY AT BEDSIDE. F/C REMOVED, PT HAS BEEN UP TO BATHROOM, GOOD U/O NOTED AFTER F/C REMOVAL. SMALL AMOUNT OF BLEEDING NOTED AFTER PT USED THE BATHROOM. UNDERWEAR AND PADS PROVIDED. X4 INCISIONS PRESENT TO ABD, CDI. BOWEL SOUNDS ACTIVE IN ALL QUADS PER AUSCULTATION. PT AMBULATING WELL, INDEPENDENTLY. HAS TOLERATED REGULAR DIET WELL. RESTING COMFORTABLY IN ROOM, VSS.
[2023-02-23 04:15] VITALS: BP 130/66; PULSE 71; RESP 17; TEMP 37.2; O2SAT 95
--- NOTE | 2023-02-23 04:16 | PC.NURSE ---
patient resting in bed at this time. Resp even and nonlabored. No s/s of distress noted. IV patent with no redness or edema noted to site. Patient ambulating to bathroom independently, tolerating well. Voided multiple times during night. 4 lap site dressings CDI. Bowel sounds normoactive in all 4 quadrants. Patient currently rates pain 5/10, scheduled Toradol given. IC at bedside, instructed patient to use every hour. Patient denies any needs at this time. CB in reach
--- NOTE | 2023-02-23 06:55 | PC.NURSE ---
Report given to Maliha Barbosa RN
[2023-02-23 07:01] LABS: Basophils % 0.4 % (0.1-2.0); Eosinophils # 0.1 K/mm3 (0.0-0.4); Eosinophils % 1.5 % (0.1-12.0); Hematocrit 36.2 % (37.0-47.0); Hemoglobin 11.8 g/dL (12.2-16.2); Lymphocytes # 3.6 K/mm3 (0.7-4.5); Lymphocytes % 39.8 % (10-50); Mean Corpuscular HGB Conc 32.6 g/dL (31.8-35.4); Mean Corpuscular Hemoglobin 29.6 pg (27.0-31.2); Mean Platelet Volume 7.6 fl (7.4-10.4); Monocytes # 0.5 K/mm3 (0.1-1.0); Neutrophils # 4.8 K/mm3 (1.8-7.8); Neutrophils % 53.3 % (37.0-80.0); Platelet Count 342 K/mm3 (142-424); Red Blood Count 3.98 M/mm3 (4.20-5.40); Red Cell Distribution Width 14.6 % (11.5-17.5)
[2023-02-23 07:09] LABS: Anion Gap 11.8 mEq/L (5-15); Blood Urea Nitrogen 13 mg/dl (7-17); Calcium 8.2 mg/dl (8.4-10.2); Carbon Dioxide 32 mmol/L (22.0-30.0); Chloride 97 mmol/L (98-107); Creatinine Clearance Estimated 194 mL/min (50-200); Estimated Glomerular Filt Rate 89 ml/min (>60); GFR (African American) 108 ML/MIN (>60); Glucose 108 mg/dl (74-100); Potassium 3.8 mmoL/L (3.5-5.1); Sodium 137 mmol/L (136-145)
[2023-02-23 08:20] VITALS: BP 120/80; PULSE 84; TEMP 36.4
--- NOTE | 2023-02-23 08:20 | EXP.ANES.II ---
[facility] Anesthesia Record Part II Anesthesia Record Part II Discharge Time: 10:55 Destination: Second Floor PACU nurse assessment reviewed?: Yes Patient Condition:: Good Anesthesia Complications:: None Swallowing reflex intact?: Yes Cyanosis?: No Blood Pressure: 120/80 Pulse Rate: 84 Temperature: 97.5 F Mental Status: Alert & Oriented Pain level:: 5 Nausea and/or vomitting:: None Intake, IV Amount: 0
--- NOTE | 2023-02-23 08:42 | EXP.DC.SUM ---
General Admission date:: 02/22/23 Discharge date: 02/23/23 HPI HPI HPI: She is a 47-year-old 0 para 0 lady who has pelvic pain. She also was seen to have a fibroid uterus. Her mother had endometrial cancer and she wanted to have a hysterectomy as result of this. After having discussed the risks and benefits we elected to admit her for a laparoscopic-assisted vaginal hysterectomy and bilateral salpingo-oophorectomy. Hospital Course Hospital Course Hospital Course: On February 22, 2023 she underwent a laparoscopically assisted vaginal hysterectomy and bilateral salpingo-oophorectomy. We initially had planned a total laparoscopic hysterectomy but unfortunately could not get the manipulator into the uterine cavity. As result of that we elected to perform a LAVH. At the time of her surgery there was what appeared to be some old endometriosis on the right pelvic sidewall as well as a few powder chambers about a millimeter in size at the vaginal vault on the peritoneum. She received 1 dose of Delestrogen 30 mg. She has done well postoperatively and has remained afebrile throughout her hospitalization. She is eating and drinking and ambulating. Her pain is well controlled. She will be discharged home today to follow-up with me in approximately 2 weeks time. She will continue with her home medications. She does have Lortab 7.5 so she will continue to take for her back pain as well as any surgical pain. She was given the usual instructions with respect to limiting her activity, driving and sexual activity. She was given instructions with respect to wound care. Her condition on discharge is stable and improved. Exam Data for Last 24 hours Vital signs and Labs for Last 24 Hours: Temp Pulse Resp BP Pulse Ox 97.5 F L 84 17 120/80 95 02/23/23 08:20 02/23/23 08:20 02/23/23 04:15 02/23/23 08:20 02/23/23 04:15 Laboratory Results - last 24 hr 02/22/23 10:00: Urine Color Yellow, Urine Appearance Clear, Urine pH 6.0, Ur Specific [place] >= 1.030, Urine Protein 1+, Urine Glucose (UA) Negative, Urine Ketones Negative, Urine Blood 2+, Urine Nitrate Negative, Urine Bilirubin Negative, Urine Urobilinogen 0.2, Ur Leukocyte Esterase Negative, Urine RBC 10-20, Urine WBC Occasional, Ur Squamous Epith Cells 5-10, Urine Bacteria 3+ A 02/22/23 16:00: Hgb 12.4, Hct 39.1 02/23/23 06:44: WBC 9.0, RBC 3.98 L, Hgb 11.8 L, Hct 36.2 L, MCV 91.0, MCH 29.6, MCHC 32.6, RDW 14.6, Plt Count 342, MPV 7.6, Neut % (Auto) 53.3, Lymph % (Auto) 39.8, [place] % (Auto) 5.0, Eos % (Auto) 1.5, Baso % (Auto) 0.4, Neut # (Auto) 4.8, Lymph # (Auto) 3.6, [place] # (Auto) 0.5, Eos # (Auto) 0.1, Baso # (Auto) 0.0 02/23/23 06:44: Sodium 137, Potassium 3.8, Chloride 97 L, Carbon Dioxide 32 H, Anion Gap 11.8, BUN 13, Creatinine 0.70, Estimated Creat Clear 194, Estimated GFR 89, Est GFR ( Amer) 108, Glucose 108 H, Calcium 8.2 L I & O for Last 24 hours: Intake & Output 02/20/23 02/21/23 02/22/23 02/23/23 11:59 11:59 11:59 11:59 Intake Total 700 / 700 0 / 0 Output Total 1400 / 1400 Balance 700 / 700 -1400 / -1400 Constitutional Constitutional: no acute distress *Routine HEENT Exam Head: Present normocephalic *Routine Neck Exam Neck: Present full ROM *Routine Respiratory Exam Respiratory: Present normal respiratory effort; Absent accessory muscle use *Routine Cardiovascular Exam Cardiovascular: Present RRR *Routine Abdominal Exam Abdominal: Present soft and normoactive bowel sounds; Absent tenderness, distended, rebound or guarding Comments: Her laparoscopic incisions are clean and dry. *Routine Skin Exam Skin: Present intact *Routine Neurological Exam Neurological: Present alert and oriented X3 Routine Psychiatric Exam Psychiatric: Present normal affect Results Data Completed and Pending Labs on day of discharge: Labs from last 24 hours 02/23/23 02/23/23 02/22/23 06:44 06:44 16:00 WBC 9.0 RBC 3.98 L Hgb 11.8 L 12.4 Hct 36.2 L
--- NOTE | 2023-02-23 10:38 | PC.NURSE ---
Addendum entered by Kesha Barbosa RN 02/23/23 10:39: Pt walked out at 0900 Original Note: Pt IV removed at this time. D/C instructions provided. Pt walked out by [facility] staff to a private vehicle
== END 2023-02-23 09:00 | disposition home or self-care (01) ==
LOC: OB 07:46
PROVIDERS: Admitting Provider Nurse Practitioner Obstetrics & Gynecology; PCP Student in an Organized Health Care Education/Training Program; Visit Provider Nurse Practitioner Obstetrics & Gynecology
PROC: (CPT 58552; principal; 2023-02-22 07:30)
DX: D25.9 Leiomyoma of uterus, unspecified (principal); F17.210 Nicotine dependence, cigarettes, uncomplicated; R10.2 Pelvic and perineal pain
CPT/HCPCS: 58552; 36415; 80048; 81001; 81025; 85014; 85018; 85025; 87086; 87635; 87636; 94761; 96372; 96374; C9803; G0283; G0378; J0131; J1956; J2405; U0003; U0005

== ENCOUNTER → 2023-03-09 07:18 | Outpatient (CLI) | payer BC, SELFPAY ==
[2023-03-09 08:12] LABS: Basophils # 0.1 K/mm3 (0-0.2); Basophils % 0.5 % (0.1-2.0); Eosinophils # 0.2 K/mm3 (0.0-0.4); Eosinophils % 2.1 % (0.1-12.0); Hematocrit 38.6 % (37.0-47.0); Hemoglobin 12.7 g/dL (12.2-16.2); Lymphocytes # 2.9 K/mm3 (0.7-4.5); Lymphocytes % 31.6 % (10-50); Mean Corpuscular HGB Conc 32.9 g/dL (31.8-35.4); Mean Corpuscular Hemoglobin 29.4 pg (27.0-31.2); Mean Corpuscular Volume 89.3 fl (81-99); Mean Platelet Volume 7.5 fl (7.4-10.4); Monocytes # 0.4 K/mm3 (0.1-1.0); Monocytes % 4.8 % (1.7-9.3); Neutrophils # 5.6 K/mm3 (1.8-7.8); Platelet Count 389 K/mm3 (142-424); Red Blood Count 4.32 M/mm3 (4.20-5.40); White Blood Count 9.2 K/mm3 (4.8-10.8)
[2023-03-09 08:45] LABS: Alanine Aminotransferase 21 U/L (12-78); Albumin Level 3.7 g/dl (3.5-5.0); Albumin/Globulin Ratio 1.4 (1.1-1.8); Alkaline Phosphatase 74 U/L (38-126); Anion Gap 14.2 mEq/L (5-15); Aspartate Amino Transferase 27 U/L (14-36); Bilirubin,Total 0.2 mg/dl (0.2-1.3); Blood Urea Nitrogen 12 mg/dl (7-17); Calcium 8.8 mg/dl (8.4-10.2); Carbon Dioxide 28 mmol/L (22.0-30.0); Chloride 99 mmol/L (98-107); Chol/HDL Ratio 4.1 (1-3.5); Cholesterol 197 mg/dl (140-200); Estimated Glomerular Filt Rate 107 ml/min (>60); GFR (African American) 129 ML/MIN (>60); Globulin 2.6 g/dL (1.3-3.2); Glucose 94 mg/dl (74-100); HDL Cholesterol 48 mg/dl (40-60); Potassium 4.2 mmoL/L (3.5-5.1); Sodium 137 mmol/L (136-145); Total Protein,Serum 6.3 g/dl (6.3-8.2); Triglycerides 304 mg/dl (30-150); VLDL Cholesterol 61 mg/dL (0-40)
[2023-03-09 08:56] LABS: Direct LDL Cholesterol 112.71 mg/dL (100-129)
[2023-03-09 09:07] LABS: 25-OH Vitamin D, Total < 12.8 ng/mL (30-100)
[2023-03-09 09:16] LABS: Thyroid Stimulating Hormone 1.77 uIU/mL (0.465-4.68)
[2023-03-09 10:21] LABS: Hemoglobin A1C 5.9 % (4.0-6.0)
== END ==
PROVIDERS: PCP Student in an Organized Health Care Education/Training Program; Visit Provider Student in an Organized Health Care Education/Training Program
DX: Z00.00 Encounter for general adult medical examination without abnormal findings (principal); R73.9 Hyperglycemia, unspecified; Z13.220 Encounter for screening for lipoid disorders; E55.9 Vitamin D deficiency, unspecified
CPT/HCPCS: 36415; 80053; 80061; 82306; 83036; 84443; 85025

== ENCOUNTER → 2023-09-27 23:00 | Outpatient (CLI) | payer MEDICAID, SELFPAY ==
[2023-09-27 18:26] LABS: Basophils % 0.4 % (0.1-2.0); Eosinophils # 0.2 K/mm3 (0.0-0.4); Eosinophils % 2.6 % (0.1-12.0); Hemoglobin 13.8 g/dL (12.2-16.2); Lymphocytes # 3.5 K/mm3 (0.7-4.5); Lymphocytes % 40.9 % (10-50); Mean Corpuscular HGB Conc 33.8 g/dL (31.8-35.4); Mean Corpuscular Hemoglobin 30.6 pg (27.0-31.2); Mean Corpuscular Volume 90.7 fl (81-99); Mean Platelet Volume 7.2 fl (7.4-10.4); Monocytes # 0.4 K/mm3 (0.1-1.0); Monocytes % 4.7 % (1.7-9.3); Neutrophils # 4.4 K/mm3 (1.8-7.8); Neutrophils % 51.5 % (37.0-80.0); Platelet Count 343 K/mm3 (142-424); Red Blood Count 4.52 M/mm3 (4.20-5.40); Red Cell Distribution Width 14.1 % (11.5-17.5); White Blood Count 8.6 K/mm3 (4.8-10.8)
[2023-09-27 18:31] LABS: Albumin Level 4.1 g/dl (3.5-5.0); Albumin/Globulin Ratio 1.2 (1.1-1.8); Alkaline Phosphatase 82 U/L (38-126); Bilirubin,Total 0.3 mg/dl (0.2-1.3); Calcium 8.7 mg/dl (8.4-10.2); Chloride 98 mmol/L (98-107); Globulin 3.4 g/dL (1.3-3.2); Glucose 93 mg/dl (74-100); HDL Cholesterol 38 mg/dl (40-60); Potassium 4.1 mmoL/L (3.5-5.1); Sodium 133 mmol/L (136-145); Total Protein,Serum 7.5 g/dl (6.3-8.2)
[2023-09-27 18:33] LABS: Alanine Aminotransferase 18 U/L (12-78); Anion Gap 8.1 mEq/L (5-15); Aspartate Amino Transferase 31 U/L (14-36); Blood Urea Nitrogen 12 mg/dl (7-17); Carbon Dioxide 31 mmol/L (22.0-30.0); Chol/HDL Ratio 6.6 (1-3.5); Cholesterol 250 mg/dl (140-200); Estimated Glomerular Filt Rate 89 ml/min (>60); GFR (African American) 108 ML/MIN (>60)
[2023-09-27 18:36] LABS: Triglycerides 433 mg/dl (30-150)
[2023-09-27 18:48] LABS: 25-OH Vitamin D, Total 27.3 ng/mL (30-100)
[2023-09-27 18:53] LABS: Hemoglobin A1C 5.8 % (4.0-6.0)
[2023-09-27 19:01] LABS: Thyroid Stimulating Hormone 1.19 uIU/mL (0.465-4.68)
[2023-09-27 20:13] LABS: Direct LDL Cholesterol 153.85 mg/dL (100-129)
== END ==
PROVIDERS: PCP Student in an Organized Health Care Education/Training Program; Visit Provider Student in an Organized Health Care Education/Training Program
DX: E55.9 Vitamin D deficiency, unspecified (principal); E78.1 Pure hyperglyceridemia; E66.9 Obesity, unspecified; Z68.43 Body mass index [BMI] 50.0-59.9, adult
CPT/HCPCS: 80053; 80061; 82306; 83036; 84443; 85025

== ENCOUNTER 2023-12-09 18:31 | Outpatient (CLI) | payer MEDICAID, SELFPAY ==
[2023-12-09 18:34] LABS: Basophils # 0.1 K/mm3 (0-0.2); Eosinophils # 0.3 K/mm3 (0.0-0.4); Eosinophils % 3.4 % (0.1-12.0); Hematocrit 42.1 % (37.0-47.0); Hemoglobin 13.6 g/dL (12.2-16.2); Lymphocytes # 2.6 K/mm3 (0.7-4.5); Lymphocytes % 30.5 % (10-50); Mean Corpuscular HGB Conc 32.3 g/dL (31.8-35.4); Mean Corpuscular Hemoglobin 31.3 pg (27.0-31.2); Mean Corpuscular Volume 96.9 fl (81-99); Mean Platelet Volume 8.7 fl (7.4-10.4); Monocytes # 0.4 K/mm3 (0.1-1.0); Monocytes % 4.7 % (1.7-9.3); Neutrophils # 5.3 K/mm3 (1.8-7.8); Neutrophils % 60.5 % (37.0-80.0); Platelet Count 357 K/mm3 (142-424); Red Blood Count 4.35 M/mm3 (4.20-5.40); Red Cell Distribution Width 14.2 % (11.5-17.5); White Blood Count 8.7 K/mm3 (4.8-10.8)
[2023-12-09 18:48] LABS: Alanine Aminotransferase 17 U/L (12-78); Albumin Level 3.9 g/dl (3.5-5.0); Albumin/Globulin Ratio 1.3 (1.1-1.8); Alkaline Phosphatase 92 U/L (38-126); Anion Gap 8.3 mEq/L (5-15); Aspartate Amino Transferase 26 U/L (14-36); Bilirubin,Total 0.3 mg/dl (0.2-1.3); Blood Urea Nitrogen 13 mg/dl (7-17); Calcium 9.2 mg/dl (8.4-10.2); Carbon Dioxide 33 mmol/L (22.0-30.0); Chloride 100 mmol/L (98-107); Chol/HDL Ratio 7.3 (1-3.5); Cholesterol 249 mg/dl (140-200); Estimated Glomerular Filt Rate 89 ml/min (>60); GFR (African American) 108 ML/MIN (>60); Globulin 2.9 g/dL (1.3-3.2); Glucose 118 mg/dl (74-100); HDL Cholesterol 34 mg/dl (40-60); Potassium 4.3 mmoL/L (3.5-5.1); Sodium 137 mmol/L (136-145); Total Protein,Serum 6.8 g/dl (6.3-8.2); Triglycerides 380 mg/dl (30-150); VLDL Cholesterol 76 mg/dL (0-40)
[2023-12-09 19:00] LABS: Direct LDL Cholesterol 147.99 mg/dL (100-129)
[2023-12-09 19:03] LABS: 25-OH Vitamin D, Total 35.9 ng/mL (30-100)
[2023-12-09 19:19] LABS: Thyroid Stimulating Hormone 1.54 uIU/mL (0.465-4.68)
== END 2023-12-09 23:59 ==
LOC: LAB.DROPOF 18:31
PROVIDERS: PCP Student in an Organized Health Care Education/Training Program; Visit Provider Student in an Organized Health Care Education/Training Program
DX: E55.9 Vitamin D deficiency, unspecified (principal); E78.1 Pure hyperglyceridemia; Z13.29 Encounter for screening for other suspected endocrine disorder; M54.50 Low back pain, unspecified; B96.89 Other specified bacterial agents as the cause of diseases classified elsewhere; E66.9 Obesity, unspecified; Z68.38 Body mass index [BMI] 38.0-38.9, adult; Z79.899 Other long term (current) drug therapy
CPT/HCPCS: 80053; 80061; 82306; 84443; 85025; 87086

== ENCOUNTER 2023-12-11 14:28 | Emergency (ER) | payer MEDICAID, SELFPAY ==
[2023-12-11 15:55] VITALS: BP 128/83; PULSE 79; RESP 20; TEMP 36.6; O2SAT 99; BMI 37.8
--- NOTE | 2023-12-11 16:15 | ED_ITS ---
Discharge Plan Disposition Patient Disposition: Home, Self-Care Condition: Good Prescriptions Prescriptions: New methocarbamol 500 mg tablet 500 mg PO BID PRN (Reason: muscle spasm) Qty: 14 0RF No Action albuterol sulfate 90 mcg/actuation HFA aerosol inhaler 1 inh inhalation QID Qty: 6.7 3RF cholecalciferol (vitamin D3) 1,250 mcg (50,000 unit) capsule 1,250 mcg PO WEEKLY Qty: 14 0RF semaglutide 0.25 mg or 0.5 mg (2 mg/3 mL) pen injector 0.25 mg SQ WEEKLY Qty: 3 2RF Rx Instructions: for 4 weeks estradiol 2 mg tablet 2 mg PO DAILY Qty: 30 8RF fluticasone propionate 50 mcg/actuation spray,suspension 1 spray intranasal BID Qty: 16 2RF Rx Instructions: administer into each nostril sertraline 100 mg tablet 100 mg PO DAILY Qty: 30 3RF nabumetone 750 mg tablet 750 mg PO BID omega-3 fatty acids-fish oil 1 EACH capsule 1 cap PO DAILY hydrocodone-acetaminophen 7.5-325 mg tablet 1 tab PO Q6HP PRN (Reason: Moderate Pain (Scale Score 5-6)) Referrals Follow up/Referrals: Luciana Devi PA [Primary Care Provider] - See instructions Activity Restrictions/Add. Instructions Additional Instructions/Restrictions: Take your Prescribed pain medication *moist heat every 20 minutes 3-4 times a day to affected area *Muscle relaxer every 12 hours as needed for muscle spasms but remember, it WILL cause drowsiness You cannot take it and drive, operate machinery or care for small children. *Keep this area active, no movement leads to more stiffness, However take it easy and avoid heavy lifting pushing or pulling *Follow up with you family doctor if no improvement for further treatment Clinical Impressions Clinical Impression: Low back pain Qualifiers: Chronicity: unspecified Back pain laterality: midline Sciatica presence: unspecified whether sciatica present Qualified Code(s): M54.50 - Low back pain, unspecified Instructions Patient Instructions: Constipation, DI for Low Back Pain Discharge ED Provider: Lenora Adames [facility] General Stated complaint: cramping lower back pain Mode of Arrival: Ambulatory Source of Information: Patient Limitations: No Limitations Time Seen by Provider: 12/11/23 16:24 Description of Symptoms (Recalled from Triage Doc. by RN): PATIENT C/O SHARP LOWER BACK PAIN AND CRAMPING TO PELVIC AREA THAT STARTED YESTERDAY MORNING. NO KNOWN INJURY. PATIENT DOES REPORT THAT SHE IS HAVING SOME URINARY FREQUENCY HEENT Symptoms (Recalled from RN notes): No Resp Symptoms (Recalled from RN notes): No Skin Symptoms (Recalled from RN notes): No MS Symptoms (Recalled from RN notes): Yes Functional Status (Recalled from RN notes): WNL History of Present Illness Provider Complaint: Patient states that she has been having some pain in her lower back area for a couple of days states that she does have back problems, States that she recently seen PCP and they did some blood work and did a UA with culture states that it showed large blood in her urine but that is normal for her States that she has continued to have pain in her lower back and cramping like feeling in her lower abdomen and noticed she is now urinating more frequently than usual thinks she may have a bad UTI or slipped disk in her back Denies loss of control of bowel or bladder Related Data Home Medications Medication Instructions Recorded Confirmed omega-3 fatty acids-fish oil 300 1 cap PO DAILY Supplement 05/08/21 12/09/23 mg-1,000 mg capsule hydrocodone 7.5 mg-acetaminophen 1 tab PO Q6HP PRN Moderate Pain 02/22/23 12/09/23 325 mg tablet (Scale Score 5-6) nabumetone 750 mg tablet 750 mg PO BID back pain 09/27/23 12/09/23 Previous Rx's Medication Instructions Recorded estradiol 2 mg tablet 2 mg PO DAILY #30 tabs 06/30/23 fluticasone propionate 50 1 spray intranasal BID #16 grams 08/03/23 mcg/actuation nasal spray,suspension albuterol sulfate 90 mcg/actuation 1 inh inhalation QID #6.7 grams 09/27/23 aerosol inhaler cholecalciferol (vitamin D3) 1,250 1,250 mcg PO WEEKLY #14 caps 09/29/23 mcg (50,000 unit) capsule sertraline 100 mg tablet 100 mg PO DAILY #30 tabs 10/17/23 semaglutide 0.25 mg or 0.5 mg (2 0.25 mg (0.368 mL) SQ WEEKLY #3 mL 12/09/23 mg/3 mL) subcutaneous pen injector methocarbamol 500 mg tablet 500 mg PO BID PRN muscle spasm #14 12/11/23 tabs Allergies Allergy/AdvReac Type Severity Reaction Status Date / Time Penicillins Allergy Verified 12/09/23 08:26 Worker's Comp Is this a Worker's Comp case?: No [facility] Disclaimer: The information contained in this section may have been updated after the patient was seen, as this information can be updated by other users. Medical History Back pain Exposure to COVID-19 virus IBS (irritable bowel syndrome) She has concerns regarding possible IBS and states that she wishes to see gastroenterology. Side pain Sinusitis URI (upper respiratory infection) Surgical History History of bilateral salpingo-oophorectomy History of carpal tunnel surgery History of laparoscopic-assisted vaginal hysterectomy Family History Mother Cancer Uterine Social History Smoking Status: Current every day smoker tobacco type: cigarettes packs per day: 1 years smoked: 15 second hand exposure: No alcohol intake: never substance use type: denies use current occupational status: employed Travel in the last 8 weeks: None household members: none housing: house current occupation: [employer] current occupational exposures/hazards: No caffeine: Yes ROS Obtained: Yes All systems reviewed & no additional complaints except as documented and Yes Systems reviewed as appropriate & no additional complaints except as documented Constitutional Constitutional: Reports system reviewed and no additional complaints, except as documented, Reports as per HPI, Denies body ache, Denies chills and Denies fever(s) ENT Ears, Nose, Mouth, and Throat: Reports system reviewed and no additional complaints, except as documented and Reports as per HPI Cardiovascular Cardiovascular: Reports system reviewed and no additional complaints, except as documented and Reports as per HPI Respiratory Respiratory: Reports system reviewed and no additional complaints, except as documented and Reports as per HPI Gastrointestinal Gastrointestingal: Reports system reviewed and no additional complaints, except as documented, as per HPI and cramping; Denies diarrhea, nausea or vomiting Genitourinary Female Genitourinary: Reports system reviewed and no additional complaints, except as documented, Reports as per HPI, Reports urinary frequency and Reports urinary urgency Musculoskeletal Musculoskeletal: Reports system reviewed and no additional complaints, except as documented, Reports as per HPI and Reports back pain (low back pain ) Physical Exam General General appearance: alert and in no apparent distress ENT ENT exam: Present mucous membranes moist Respiratory Respiratory exam: Present normal lung sounds bilaterally; Absent respiratory distress or wheezes Cardiovascular Cardiovascular exam: Present regular rate, normal rhythm and normal heart sounds Abdominal Exam Abdominal exam: Present soft and normal bowel sounds; Absent distention, tenderness, guarding or rebound Back Exam Back exam: Present tenderness Back 1 view image: 1. reports pain worse with movement and standing denies radiation of pain and denies loss of control of bowel or bladder Neurological Exam Neurological exam: Present alert, oriented X3 and normal gait Medical Decision Making Dim[place] Inquiry Pt receiving controlled substance: No [place] was queried for this patient: No Vital Signs: 12/11/23 15:55 Temperature 97.8 F Temperature Source Oral Pulse Rate [Left Brachial] 79 Respiratory Rate 20 Blood Pressure [Left Arm] 128/83 Blood Pressure Mean [Left Arm] 98 Blood Pressure Source [Left Arm] Automatic Cuff Blood Pressure Position [Left Arm] Sitting 02 Sat by Pulse Oximetry 99 Oxygen Delivery Method Room Air Radiology Data #1: Image(s): L-Spine Image Reviewed: Yes I have reviewed radiologist's interpretation IMPRESSION: 1. No acute osseous findings. 2. Mild multilevel lumbar spondylosis. Medical Decision Narrative: Discussed transfer to the ED for further work up, imaging and testing and patient declined Agreed to UA and xray of lumbar and states that she will F/U with her PCP if needed Patient states that she does not want any medication Awaiting xray reading Patient resting in room still awaiting xray reading of Lspine Stool noted Patient educated for use of Fleets glycerin suppositorys and Enema to help clear stool patient verbalized understanding
[2023-12-11 16:17] LABS: Apearance,Urine Cloudy (Clear); Bilirubin,Urine Negative (Negative); Blood, Urine 3+ (Negative); Color,Urine Dark Yellow (Yellow); Glucose,Urine (UA) Negative (Negative); Ketones,Urine Negative (Negative); PH,Urine 6.5 (5.0-8.5); Protein,Urine Negative (Negative); UTC Leukocyte Esterase,Urine Negative (Negative); UTC Nitrate,Urine Negative (Negative); Urobilinogen,Urine 0.2 EU/dl (0.2)
--- NOTE | 2023-12-11 16:23 | XR_ITS ---
PROCEDURE INFORMATION: Exam: XR Lumbosacral Spine Exam date and time: 12/11/2023 4:22 PM Age: 48 years old Clinical indication: Patient HX: Low back pain since yesterday morning. ; Additional info: Lower back pain TECHNIQUE: Imaging protocol: Radiologic exam of the lumbosacral spine. Views: 2 or 3 views. COMPARISON: CT ABDOMEN PELVIS WO CON 12/03/2022 12:53 PM FINDINGS: Bones/joints: Transitional anatomy with suspected partial sacralization of L5. Lumbar vertebrae normal in height. Mild leftward curvature. 6 mm left lateral spondylolisthesis L3 on L4. No acute fracture. Mild multilevel degenerative changes. Soft tissues: Unremarkable. IMPRESSION: 1. No acute osseous findings. 2. Mild multilevel lumbar spondylosis.
[2023-12-11 18:09] VITALS: BP 128/83; PULSE 79; RESP 20; TEMP 36.6; O2SAT 99
== END 2023-12-11 18:15 | disposition home or self-care (01) ==
PROVIDERS: Emergency Provider Nurse Practitioner; PCP Student in an Organized Health Care Education/Training Program
DX: M54.50 Low back pain, unspecified (principal); M62.838 Other muscle spasm; R10.819 Abdominal tenderness, unspecified site; F17.210 Nicotine dependence, cigarettes, uncomplicated
CPT/HCPCS: 72100; 81003; 99212; 99214; G0463

== ENCOUNTER 2023-12-23 13:06 | Outpatient (CLI) | payer MEDICAID, SELFPAY ==
--- NOTE | 2023-12-23 13:10 | MM_ITS ---
PROCEDURE INFORMATION: Exam: MG Bilateral Screening 3D Mammography Exam date and time: 12/23/2023 1:04 PM Age: 48 years old Clinical indication: Screening examination TECHNIQUE: Imaging protocol: Bilateral Screening tomosynthesis and 2D mammography including computer-aided detection (CAD) when performed. COMPARISON: 1. MG MM DIG SCREENING MAMM BI W/CAD 08/17/2022 12:09 PM 2. MG MM DIG SCREENING MAMM BI W/CAD 04/17/2021 4:07 PM FINDINGS: MAMMOGRAPHY: Breast composition: There are scattered areas of fibroglandular density. Mass: None. Architectural distortion: None. Calcifications: No suspicious calcifications. Asymmetric density: None. Skin thickening: None. Axillary adenopathy: None. IMPRESSION: No mammographic evidence of malignancy. Annual screening is recommended unless otherwise clinically indicated. ASSESSMENT: BI-RADS Category 1: Negative
== END 2023-12-23 23:59 ==
LOC: RAD 13:07
PROVIDERS: PCP Student in an Organized Health Care Education/Training Program; Visit Provider Student in an Organized Health Care Education/Training Program
DX: Z12.31 Encounter for screening mammogram for malignant neoplasm of breast (principal)
CPT/HCPCS: 77063; 77067

== ENCOUNTER 2024-04-17 09:23 | Outpatient (CLI) | payer MEDICAID, SELFPAY ==
[2024-04-17 09:30] LABS: Adenovirus F 40/41, stool Not Detected (NotDetected); Astrovirus Not Detected (NotDetected); Campylobacter Not Detected (NotDetected); Clostridium Difficile A/B, PCR Not Detected (NotDetected); Cryptosporidium Not Detected (NotDetected); Cyclospora Cayetanesis Not Detected (NotDetected); Entamoeba histolytica Not Detected (NotDetected); Enteroaggregative E coli Not Detected (NotDetected); Enteropathogenic E coli Not Detected (NotDetected); Enterotoxigenic E coli Not Detected (NotDetected); Giardia lamblia Not Detected (NotDetected); Plesimonas Shigalloides, PCR Not Detected (NotDetected); Salmonella, PCR Not Detected (NotDetected); Shiga-like toxin E coli Not Detected (NotDetected); Shigella Enterovasive E coli Not Detected (NotDetected); Vibrio Cholerae Not Detected (NotDetected); Vibrio, PCR Not Detected (NotDetected); Yersinia Entercolitica, PCR Not Detected (NotDetected)
[2024-04-17 09:31] LABS: Norovirus Not Detected (NotDetected); Rotavirus A Not Detected (NotDetected); Sapovirus Not Detected (NotDetected)
--- NOTE | 2024-04-17 09:39 | XR_ITS ---
FINAL REPORT CLINICAL HISTORY: abd pain, NVD COMPARISON: None FINDINGS: Two views of the abdomen demonstrate a nonobstructive bowel gas pattern. There is no free air. There are no abnormal calcifications. There are postoperative changes in the left pelvis. Moderate degenerative changes are noted in the lumbar spine. There is leftward curvature of the lumbosacral spine. IMPRESSION: Nonobstructive bowel gas pattern. Reviewed, Interpreted and Dictated by Adam Shell III, MD Transcribed by Kimberley Romeo Authenticated and . [facility]
[2024-04-17 09:46] LABS: Basophils # 0.1 K/mm3 (0-0.2); Basophils % 0.7 % (0.1-2.0); Eosinophils # 0.2 K/mm3 (0.0-0.4); Eosinophils % 1.5 % (0.1-12.0); Hematocrit 44.1 % (37.0-47.0); Hemoglobin 14.5 g/dL (12.2-16.2); Lymphocytes # 3.6 K/mm3 (0.7-4.5); Lymphocytes % 30.8 % (10-50); Mean Corpuscular HGB Conc 32.9 g/dL (31.8-35.4); Mean Corpuscular Hemoglobin 30.7 pg (27.0-31.2); Mean Corpuscular Volume 93.2 fl (81-99); Mean Platelet Volume 7.2 fl (7.4-10.4); Monocytes # 0.7 K/mm3 (0.1-1.0); Monocytes % 5.5 % (1.7-9.3); Neutrophils # 7.3 K/mm3 (1.8-7.8); Neutrophils % 61.5 % (37.0-80.0); Platelet Count 362 K/mm3 (142-424); Red Blood Count 4.73 M/mm3 (4.20-5.40); Red Cell Distribution Width 14.6 % (11.5-17.5); White Blood Count 11.8 K/mm3 (4.8-10.8)
[2024-04-17 11:34] LABS: Vitamin B12 317 pg/mL (239-931)
== END 2024-04-17 23:59 | disposition home or self-care (01) ==
LOC: LAB 09:24
PROVIDERS: Obstetrics & Gynecology; PCP Student in an Organized Health Care Education/Training Program; Visit Provider Student in an Organized Health Care Education/Training Program
DX: R10.9 Unspecified abdominal pain (principal); R19.7 Diarrhea, unspecified; R11.2 Nausea with vomiting, unspecified
CPT/HCPCS: 74019; 82607; 85025; 87507

== ENCOUNTER 2024-07-05 13:31 | Outpatient (CLI) | payer MEDICAID, SELFPAY ==
[2024-07-05 18:48] LABS: Hemoglobin A1C 5.7 % (4.0-6.0)
[2024-07-05 19:39] LABS: Chol/HDL Ratio 4.1 (1-3.5); Cholesterol 151 mg/dl (140-200); HDL Cholesterol 37 mg/dl (40-60); Triglycerides 206 mg/dl (30-150); VLDL Cholesterol 41 mg/dL (0-40)
[2024-07-05 19:49] LABS: Direct LDL Cholesterol 85.29 mg/dL (100-129)
== END 2024-07-05 23:59 | disposition home or self-care (01) ==
LOC: LAB.DROPOF 07-06 14:47
PROVIDERS: PCP Student in an Organized Health Care Education/Training Program; Visit Provider Student in an Organized Health Care Education/Training Program
DX: Z76.0 Encounter for issue of repeat prescription (principal); R73.03 Prediabetes
CPT/HCPCS: 80061; 83036

== ENCOUNTER 2025-03-15 15:41 | Outpatient (CLI) | payer MEDICAID, SELFPAY ==
--- OUTSIDE RECORDS SUMMARY | 2025-03-15 15:43 | XMS_ITS | Referral Summary ---
Author Organization [facility] Address [address] [place] [address] Care Team Providers Care Legal Mediator Name Role Phone Unavailable Primary Care Provider Unavailabl e Social History Tobacco Use Types Packs/Day Years Used Date Smoking Tobacco: Never Assessed Comments Unknown Sex and Gender Information Value Date Recorded Sex Assigned at Female 04/06/2022 6:50 PM CDT Legal Sex Female 6:50 PM CDT Gender Identity Female 04/06/2022 6:50 PM CDT Sexual Orientation Not on file Plan of Treatment Not on file
--- OUTSIDE RECORDS SUMMARY | 2025-03-15 15:43 | XMS_ITS | Clinical Summary ---
Author Organization [facility] Address [address] [place] [address] Care Team Providers Care Machine Shop Worker Name Role Phone Danial Baig MD Primary Care Provider [phone] Social History Tobacco Use Types Packs/Day Years Used Date Smoking Tobacco: Never Assessed Comments Unknown Sex and Gender Information Value Date Recorded Sex Assigned at Not on file Legal Sex Female 3:15 AM EST Gender Identity Not on file Sexual Orientation Not on file Plan of Treatment Not on file Insurance [place] BC[place] Care Teams Machine Shop Worker Relationship Specialty Start Date End Date Danial Baig MD [address] [place] [address] PCP - General Obstetrics & Gynecology 03/13/19
--- OUTSIDE RECORDS SUMMARY | 2025-03-15 15:43 | XMS_ITS | Clinical Summary ---
Author Organization [employer] [facility] Address [address] [place] [address] Care Team Providers Care Workday Senior Associate Name Role Phone Unavailable Primary Care Provider [...]
--- NOTE | 2025-03-15 16:00 | MM_ITS ---
PROCEDURE INFORMATION: Exam: MG Bilateral Screening 3D Mammography Exam date and time: 03/15/2025 3:57 PM Age: 49 years old Clinical indication: Screening exam TECHNIQUE: Imaging protocol: Bilateral Screening tomosynthesis and 2D mammography including computer-aided detection (CAD) when performed. COMPARISON: 1. MG MM DIG SCREENING MAMM BI W/CAD 12/23/2023 1:04 PM 2. MG MM DIG SCREENING MAMM BI W/CAD 08/17/2022 12:09 PM FINDINGS: MAMMOGRAPHY: Breast composition: There are scattered areas of fibroglandular density. Mass: No suspicious masses. Architectural distortion: None. Calcifications: No suspicious calcifications. Asymmetric density: None. Skin thickening: None. Axillary adenopathy: None. IMPRESSION: No mammographic evidence of malignancy. Annual screening is recommended unless otherwise clinically indicated. ASSESSMENT: BI-RADS Category 1: Negative.
== END 2025-03-15 23:59 | disposition home or self-care (01) ==
LOC: RAD 15:41
PROVIDERS: PCP Internal Medicine; Visit Provider Internal Medicine
DX: Z12.31 Encounter for screening mammogram for malignant neoplasm of breast (principal); R92.323 Mammographic fibroglandular density, bilateral breasts
CPT/HCPCS: 77063; 77067

== ENCOUNTER 2025-04-01 09:49 | Outpatient (CLI) | payer MEDICAID, SELFPAY ==
--- NOTE | 2025-04-01 10:00 | CT_ITS ---
FINAL REPORT TECHNIQUE: Thin section axial images were obtained from the lung apices to the upper abdomen by computed tomography. Reformatted images were obtained and reviewed. This study was performed with techniques to keep radiation doses al low as reasonably achievable (ALARA). Individualized dose reduction techniques using automated exposure control or adjustment of mA and/or kV according to the patient's size were employed. CLINICAL HISTORY: lung cancer screening, current smoker 1ppd for 35yrs COMPARISON: None FINDINGS: CT CHEST LOW DOSE SCREENING HISTORY: Screening exam for lung cancer. 49-year-old female, current smoker, [id number] history. DOSE: CTDI vol: 2.90 mGy, DLP: 106.55 mGy*cm TECHNIQUE: Axial CT without IV contrast administration using low dose protocol. This study was performed with techniques to keep radiation doses as low as reasonably achievable, (ALARA). Individualized dose reduction techniques using automated exposure control or adjustment of mA and/or kV according to the patient's size were employed. No acute lung disease is present. No pulmonary lesions are seen suspicious for neoplasm. There is evidence of old calcified granulomatous disease. Chronic interstitial scar is present. No pleural or pericardial effusion is seen. No adenopathy or mass lesion is present. There are a few bilateral enlarged mediastinal nodes, partially calcified, indicating that they are the result of benign post inflammatory change. IMPRESSION: No pulmonary lesions are seen suspicious for neoplasm, no acute lung disease is present. LUNG RADS CATEGORY 1 RECOMMENDATION: 12 month LDCT follow up Reviewed, Interpreted and Dictated by Beto Wetzel MD Transcribed by Bhavna Galvan Authenticated and [facility]
--- OUTSIDE RECORDS SUMMARY | 2025-04-01 10:18 | XMS_ITS | Clinical Summary ---
Author Organization [facility] Address [address] [place] [address] Care Team Providers Care Patient Account Representative Name Role Phone Danial Baig MD Primary Care Provider [phone] Social History Tobacco Use Types Packs/Day Years Used Date Smoking Tobacco: Never Assessed Comments Unknown Sex and Gender Information Value Date Recorded Sex Assigned at Not on file Legal Sex Female 3:15 AM EST Gender Identity Not on file Sexual Orientation Not on file Plan of Treatment Not on file Insurance [place] BCBS Care Teams Patient Account Representative Relationship Specialty Start Date End Date Danial Baig MD [address] [place] [address] PCP - General Obstetrics & Gynecology 03/13/19
--- OUTSIDE RECORDS SUMMARY | 2025-04-01 10:18 | XMS_ITS | Referral Summary ---
Author Organization [employer] Address [address] [place] [address] Care Team Providers Care Gaming Dealer Name Role Phone Unavailable Primary Care Provider [...]
--- OUTSIDE RECORDS SUMMARY | 2025-04-01 10:18 | XMS_ITS | Clinical Summary ---
Author Organization [employer] [facility] Address [address] [place] [address] Care Team Providers Care Innersole Fitter Name Role Phone Unavailable Primary Care Provider [...]
== END 2025-04-01 23:59 | disposition home or self-care (01) ==
LOC: RAD 09:49
PROVIDERS: PCP Internal Medicine; Visit Provider Internal Medicine
DX: F17.209 Nicotine dependence, unspecified, with unspecified nicotine-induced disorders (principal); Z12.2 Encounter for screening for malignant neoplasm of respiratory organs
CPT/HCPCS: 71271

== ENCOUNTER 2025-06-05 14:30 | Outpatient (CLI) | payer MEDICAID, SELFPAY ==
--- OUTSIDE RECORDS SUMMARY | 2025-05-28 12:45 | XMS_ITS | Encounter Summary ---
Author Organization [facility] Address [address] [place] [address] Care Team Providers Care Network Firewall Engineer Name Role Phone Pcp, No Primary Care Provider Unavailabl e Encounter Details Date Type Department Care Team (Late st Contact Info) Description 05/28/2025 12:45 PM EDT Office Visit [facility] [address] [place] [address] Treasure Wyman Asymptomatic irreversible pulpitis (Primary Dx) Social History Tobacco Use Types Packs/Day Years Used Date Smoking Tobacco: Never Assessed Comments Unknown Sex and Gender Information Value Date Recorded Sex Assigned at Not on file Legal Sex Female 8:22 PM EDT Gender Identity Not on file Sexual Orientation Not on file documented as of this encounter Last Filed Vital Signs Vital Sign Reading Time Taken Comments Blood Pressure 135/85 05/28/2025 1:02 PM EDT Pulse - - Temperature - - Respiratory Rate - - Oxygen Saturation - - Inhaled Oxygen Concentration - - Weight - - Height - - Body Mass Index - - documented in this encounter Miscellaneous Notes * Progress Notes - Treasure Wyman - 05/28/2025 12:45 PM EDT Images from the original note were not included. Non-Surgical Endodontic Therapy Performed by: Treasure Wyman Attending: Dr. Vargas [facility] HX: Health: reviewed medical history NKDA. No contraindications to [place]. BP: Vitals: 05/28/25 1302 BP: 135/85 Chief Complaint: referred for tooth with a large cavity that is getting a crown Location:#3 Intensity:0 Quality: N/A Onset: N/A Aggravating Factors: N/A Alleviating Factors: N/A Percussion:+ Palpation: + Cold: + Pre-op Radiographic Interpretation- Radiographs taken PA and BW DO decay that encroaches on pulp RCT #3. DX: Asymptomatic irreversible pulpitis and Normal apical tissues. Consent Obtained: The risks, benefits, indications, potential complications, and alternatives were explained to the patient and informed consent was obtained with good understanding. Description of procedure: Delivered 2 carpules of 4% Septocaine w/1:100,000 Epi 1.7 mL via Infiltration. RDI Achieved. WL determined via [place] sheet taker. Final WL - 20.5mm in MB canal, 17.0mm in P canal, and 20.5mm in DB canal Canals shaped to: MB 25, DB 25, and P 40 File system used: [employer] Irrigants: 6% NaOCl; Sterile water, Q mix Activation: Endo Activator Dried canals. Cone[employer] radiograph taken Placed corresponding size GP cones in each canal. Sealer: NeoSealer Seared off excess GP. Spiritism: BC Liner, Cotton, and RMGI Pt tolerated procedure well. Verified occlusion. Post Op Instructions given: Written and Verbally Pt was informed of the importance to get a final adventism JIO. Informed pt of increased risk offailure and fracture if he/she did not do this in a timely manner. Pt understood. Prognosis: Good Post Operative Pulpal DGX: Irreversible Pulpitis Complications: None / MB2 orifice was found and troughed. The canal was not able to be negotiated. It was decided to stop troughing so as not to cause perforation. Disposition: Pt to return for final adventism with general dentist/student dentist. Cosigned by Nanveet Vargas DMD at 05/29/2025 1:05 PM EDT Associated attestation - Navneet Vargas DMD - 05/29/2025 1:05 PM EDT I saw and evaluated the patient with the resident/fellow. I discussed the case with the resident/fellow and agree with the findings and plan as documented. documented in this encounter Plan of Treatment Not on file documented as of this encounter Procedures Procedure Name Priority Date/Time Associated Diagnosis Comments 3 ENDODONTIC THERAPY, MOLAR TOOTH (EXCLUDING FINAL CAODAISM) Routine 05/28/2025 12:45 PM EDT Asymptomatic irreversible pulpitis 3 INTRAORAL - PERIAPICAL FIRST RADIOGRAPHIC IMAGE Routine 05/28/2025 12:45 PM EDT Asymptomatic irreversible pulpitis documented in this encounter Visit Diagnoses Diagnosis Asymptomatic irreversible pulpitis- Primary documented in this encounter Additional Health Concerns Assessment Noted Time A Body Mass Index follow-up plan has been documented for the patient 05/28/2025 4:01 PM EDT documented as of this encounter Care Teams Network Firewall Engineer Relationship Specialty Start Date End Date Pcp, [place] [address] PCP - General Family Medicine 05/28/25 documented as of this encounter
--- OUTSIDE RECORDS SUMMARY | 2025-06-05 14:32 | XMS_ITS | Referral Summary ---
Author Organization [employer] ([place], [place], [place], [place]) Address [address] [place] [address] Care Team Providers Care Water Service Dispatcher Name Role Phone Unavailable Primary Care Provider [...]
--- OUTSIDE RECORDS SUMMARY | 2025-06-05 14:32 | XMS_ITS | Clinical Summary ---
Author Organization [facility] Address [address], [address] [place] [address] Care Team Providers Care Birdcage Assembler Name Role Phone Danial Baig MD Primary Care Provider [phone] Social History Tobacco Use Types Packs/Day Years Used Date Smoking Tobacco: Never Assessed Comments Unknown Sex and Gender Information Value Date Recorded Sex Assigned at Not on file Legal Sex Female 3:15 AM EST Gender Identity Not on file Sexual Orientation Not on file Plan of Treatment Not on file Insurance [place] Care Teams Birdcage Assembler Relationship Specialty Start Date End Date Danial Baig MD [address] [place] [address] PCP - General Obstetrics & Gynecology 03/13/19
--- OUTSIDE RECORDS SUMMARY | 2025-06-05 14:32 | XMS_ITS | Encounter Summary ---
Author Organization [facility] Address [address] [place] [address] Care Team Providers Care Maintenance Planner Name Role Phone Pcp, No Primary Care Provider Unavailabl e Encounter Details Date Type Department Care Team (Latest Contact Info) Description 05/28/2025 Travel Social History Tobacco Use Types Packs/Day Years Used Date Smoking Tobacco: Never Assessed Comments Unknown Sex and Gender Information Value Date Recorded Sex Assigned at Not on file Legal Sex Female 8:22 PM EDT Gender Identity Not on file Sexual Orientation Not on file documented as of this encounter Plan of Treatment Not on file documented as of this encounter Visit Diagnoses Not on filedocumented in this encounter Additional Health Concerns Assessment Noted Time A Body Mass Index follow-up plan has been documented for the patient 05/28/2025 4:01 PM EDT documented as of this encounter Care Teams Maintenance Planner Relationship Specialty Start Date End Date Pcp, [place] [address] PCP - General Family Medicine 05/28/25 documented as of this encounter
--- OUTSIDE RECORDS SUMMARY | 2025-06-05 14:32 | XMS_ITS | Clinical Summary ---
Author Organization [facility] Address [address] [place] [address] Care Team Providers Care Costumed Character Entertainer Name Role Phone Pcp, No Primary Care Provider Unavailabl e Medications No known medications Active Problems No known active problems Encounters Date Type Department Care Team Description 05/28/2025 12:45 PM EDT Office Visit [facility] [address] [place] [address] Treasure Wyman Asymptomatic irreversible pulpitis (Primary Dx) 05/28/2025 Travel from Last 3 Months Social History Tobacco Use Types Packs/Day Years Used Date Smoking Tobacco: Never Assessed Comments Unknown Sex and Gender Information Value Date Recorded Sex Assigned at Not on file Legal Sex Female 8:22 PM EDT Gender Identity Not on file Sexual Orientation Not on file Last Filed Vital Signs Vital Sign Reading Time Taken Comments Blood Pressure 135/85 05/28/2025 1:02 PM EDT Pulse - - Temperature - - Respiratory Rate - - Oxygen Saturation - - Inhaled Oxygen Concentration - - Weight - - Height - - Body Mass Index - - Plan of Treatment Health Maintenance Due Date Last Done Comments Dental Oral Exam 1974 Dental Prophylaxis 1974 Dental X-Ray: Bitewings 1974 Dental X-Ray: Full Mouth 1974 [facility]-Depression Screening 1974 [facility]-HIV Screening 1974 [facility]-Hepatitis C Screening 1974 [facility]-/Child/Adol SDOH Screenings 1974 [facility]- SDOH Screenings 1992 [facility]-Adult SDOH Screenings 1992 [facility]-DTaP,Tdap,and Td Vaccine s (1 - Tdap) 1993 [facility]-Hepatitis B Vaccines (1 of 3 - 19+ 3-dose series) 1993 [facility]-Pap Smear 1995 [facility]-Cervical Cancer Screening 2004 [facility]-HPV/Cotest 2004 CT Colonography 2019 Colonoscopy 2019 FIT-DNA 2019 FIT 2019 FOBT 2019 Sigmoidoscopy 2019 [facility]-Colorectal Cancer Screening 2019 RXF-[id number]-31 Vaccine (2 - 2023- season) 2024 12/19/2020 [facility]-Breast Cancer Screening 2024 06/0 02/2019, 03/14/2019 [facility]-Pneumococcal Vaccine: 50 + Years (1 of 1 - PCV) 2024 [facility]-Zoster Vaccines (1 of 2) 2024 [facility]-Influenza Vaccine (#1) 2025 [facility]-Hepatitis A Vaccines Aged Out 09/26/2018 No longer eligible based on patient's age to complete this topic HPV Vaccines Aged Out No longer eligi ble based on patient's age to complete this topic [facility]-HIB Vaccines Aged Out No longer e ligible based on patient's age to complete this topic [facility]-IPV Vaccines Aged Out No longer e ligible based on patient's age to complete this topic [facility]-Rotavirus Vaccines Aged Out No lo nger eligible based on patient's age to complete this topic Procedures Procedure Name Priority Date/Time Associated Diagnosis Comments 3 ENDODONTIC THERAPY, MOLAR TOOTH (EXCLUDING FINAL GNOSTICISM) Routine 05/28/2025 12:45 PM EDT Asymptomatic irreversible pulpitis 3 INTRAORAL - PERIAPICAL FIRST RADIOGRAPHIC IMAGE Routine 05/28/2025 12:45 PM EDT Asymptomatic irreversible pulpitis from Last 3 Months Insurance [facility] [employer] MEDICAID MEDICAID O [employer] Care Teams Costumed Character Entertainer Relationship Specialty Start Date End Date Pcp, No [address] [place] [address] PCP - General Family Medicine 05/28/25
--- OUTSIDE RECORDS SUMMARY | 2025-06-05 14:32 | XMS_ITS | Clinical Summary ---
Author Organization [employer] ([place], [place], [place], [place]) Address [address] [place] [address] Care Team Providers Care House Admin Name Role Phone Unavailable Primary Care Provider [...]
--- NOTE | 2025-06-05 14:35 | XR_ITS ---
FINAL REPORT CLINICAL HISTORY: Knee pain COMPARISON: None FINDINGS: AP and lateral views of the right knee were obtained. There is no prior exam for comparison. There is no acute fracture or dislocation. The joint space is preserved. Soft tissues are normal. IMPRESSION: No acute osseous abnormality of the right knee. Reviewed, Interpreted and Dictated by Connie Guy MD Transcribed by Bhavna Galvan Authenticated and [facility]
== END 2025-06-05 23:59 | disposition home or self-care (01) ==
LOC: RAD 14:31
PROVIDERS: PCP Internal Medicine; Visit Provider Internal Medicine
DX: M25.561 Pain in right knee (principal)
CPT/HCPCS: 73560

== ENCOUNTER 2025-08-07 09:45 | Outpatient (RCR) | payer MEDICAID, SELFPAY ==
--- NOTE | 2025-08-07 14:03 | HMH.PTOPEV ---
PT Evaluation Rehab PT Outpatient Evaluation Start: 08/07/25 09:59 Freq: Status: Active Protocol: Document 08/07/25 09:59 TELLY (Rec: 08/07/25 11:00 TELLY [id number]) E-signed By Cipriano Green, PT Outpatient Therapy Subjective History Subjective History Pt is a 50 yof who is referred to [facility] outpatient PT with complaints of R knee pain. Pt reports that her symptoms began approximately 4 months ago and reports not having a traumatic onset. Pt describes her pain as an ache that will sometimes transition into a throb. Pt reports that her pain is worse with attempting to stand, especially from lower seats, squatting, and stairs. Pt reports that her knee will often lock up and click. Pt underwent radiographs that showed no acute osseous abnormality. Pt reports that her pain has progressively worsened. Pt reports that her pain is lessened with pain medication. 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 Chief Complaint Pain,Stiff,Clicks,Catches/Locks Symptom Type Ache Symptoms Relieved By Prescription Meds Symptoms Aggravated Standing,Physical Activity,Walking,Lifting By Prior Functional None Limitations Current Functional Lifting,Housework,Standing,Squatting,Walking,Stairs Limitations Symptom Description Intermittent,Activity Dependent Level of pain today 4 (0-10) Pain scale - at its 0 best (0-10) Pain scale - at its 7 worst (0-10) Hip/Knee Eval Gait Observation General Gait Pattern Antalgic Gait,Decrease Weight Bear (R),Decrease Stride Observation Lngth (L) Palpation Tenderness right Knee Palpation Tenderness Finding Knee Palpation medial joint line tenderness 3/4 Overall Comment MMT Hip Flexion Strength 3 Fair Grade Hip Abduction 2+ Poor+ Strength Grade Knee Extension 3+ Fair+ Strength Grade Knee Flexion 3+ Fair+ Strength Grade ROM Knee ROM Reason Not Within Functional Limits Measured Special Tests Knee Apprehension Negative Right Test Knee Valgus Stress Negative Right Test Knee Varus Stress Negative Right Test Knee Khadra Test Positive Right Lower Extremity Functional Index Activities Today, do you or would you have any difficulty at all with: a.Any of your usual Moderate difficulty work, housework or school activities b. Your usual Moderate difficulty hobbies, recreational or sporting activities c. Getting into or Moderate difficulty out of the bath d. Walking between Moderate difficulty rooms e. Putting on your Quite a bit of difficulty shoes or socks f. Squatting Extreme difficulty or unable to perform activity g. Lifting an object Moderate difficulty , like a bag of groceries from the floor h. Performing light Moderate difficulty activities around your home i. Performing heavy Moderate difficulty activities around your home j. Getting into or Extreme difficulty or unable to perform activity out of a car k. Walking 2 blocks Moderate difficulty l. Walking a mile Moderate difficulty m. Going up or down A little bit of difficulty 10 stairs (about 1 flight of stairs) n. Standing for 1 Extreme difficulty or unable to perform activity hour o. Sitting for 1 Moderate difficulty hour p. Running on even Extreme difficulty or unable to perform activity ground q. Running on uneven Extreme difficulty or unable to perform activity ground r. Making sharp Extreme difficulty or unable to perform activity turns while running fast s. Hopping Extreme difficulty or unable to perform activity t. Rolling over in Quite a bit of difficulty bed LEFI Score Lower Extremity 25 Functional Index Score Miscellaneous Dx PT Eval Objective Objective Pain with forced hyperextension Pain with maximal knee flexion + Thessaly's Test Outpatient Therapy Assessment Impairments Problems/ Palpation Tenderness,Impaired Range of Motion,Impaired Impairmments Strength,Impaired Gait Pattern,Impaired Walking, Impaired Standing,Impaired Lifting,Impaired Household Care,Impaired Stair Climbing,Impaired Incline Stepping, Impaired Squatting,Impaired Balance,Subjective C/O Pain ,Impaired Self Care/Self Management Prognosis Rehab Potential Good Clinical Impression Consistent with Yes Diagnosis Consistent with Medial Meniscal Pathology Additional details: Pt presents with tenderness along the medial joint line , a history of popping/clicking, positive Khadra's and Thessaly's Tests, and pain with maximal knee flexion and knee extension. These signs and symptoms are consistent with a meniscal pathology. Skilled PT is indicated for this pt. PT Patient Goals PT Patient Goals PT Short Term In 4 weeks: Patient Goals 1.. Patient will improve R hip/knee strength to 4/5 grossly upon MMT to demonstrate functional strength improvements and to assist with functional movement patterns. 2. Patient will improve LEFS score to 35/80 in order to demonstrate overall improvement in QOL and improvement with normal daily activities. 3. Patient will be able to stand for 15 minutes at one time to demonstrate independence with gasfitter, such as washing her dishes. 4. . Pt will demonstrate HEP compliance by completing prescribed HEP at least 1x/daily. 5.. Pt will report a 48 hr pain average of 5/10 in order to demonstrate an improved QOL and overall functional improvement. 6. Pt will be able to walk with symmetrical WB and step length with the LRAD to demonstrate independence with in-home and community mobility. PT Armature Balancer Patient In 8 weeks: Goals 1. Patient will be able to perform 10 sit to stands without UE assistance in order to demonstrate impr 2. Patient will improve R hip/knee strength to 4+/5 grossly upon MMT to demonstrate functional strength improvements and to assist with functional movement patterns. 3. Patient will improve LEFS score to 45/80 in order to demonstrate overall improvement in QOL and improvement with normal daily activities. 4. Patient will be able to stand/walk for 60 minutes at one time to demonstrate independence with community activities such as grocery shopping. 5. Pt will be able to ascend/descend a flight of stairs with a reciprocal stepping pattern to demonstrate independence with in-home and community mobility. 6. Pt will report a 48 hr pain average of 2-3/10 in order to demonstrate an improved QOL and overall functional improvement. Outpatient Therapy Plan of Care Treatment Plan May Include Therapeutic Exercise Yes Including Home Exercise Program Manual Therapy Yes Techniques Neuromuscular Re- Yes education Therapeutic Yes Activities to Return to Previous Functional/Work Level Gait Training Yes ADL/Self Care Yes Education Thermal Modalities Yes Electrical Yes Stimulation Iontophoresis Yes Massage Yes Manual Lymphatic Yes Drainage Eval/Re-Eval Yes Frequency Times per week 2 Duration Number of Weeks 8 Addendums This patient is a No candidate for social or vocational rehab ? Patient/Guardian Yes verbally acknowledges understanding of treatment program and consents to further treatment? Patient/Guardian Yes verbally acknowledges understanding of diagnosis, prognosis and goals for treatment? Eval Complexity PT Charges 16571 - Moderate Complexity Shoulder/Elbow Eval Shoulder Objective Measurements Elbow Objective Measurements PHYSICIAN CERTIFICATION: I certify the specified therapy services for Katie Lora are required, authorized, and reviewed every 30 days.
== END 2025-08-07 23:59 | disposition home or self-care (01) ==
LOC: PT 09:45
PROVIDERS: PCP Internal Medicine; Visit Provider Internal Medicine
DX: M25.561 Pain in right knee (principal)
CPT/HCPCS: 97162

== ENCOUNTER 2025-08-30 09:00 | Outpatient (RCR) | payer MEDICAID, SELFPAY | END 2025-08-30 23:59 | disposition home or self-care (01) | LOC: PT 09:00 | PROVIDERS: PCP Internal Medicine; Visit Provider Internal Medicine | DX: M25.561 Pain in right knee (principal) | CPT/HCPCS: 97110 ==

== ENCOUNTER 2025-09-20 08:53 | Outpatient (CLI) | payer MEDICAID, SELFPAY ==
--- NOTE | 2025-09-20 08:45 | MR_ITS ---
FINAL REPORT CLINICAL HISTORY: Torn meniscus. MEDIAL SIDED KNEE PAIN. NO INJURY OR TRAUMA. KNEE INSTABILITY. COMPARISON: None FINDINGS: Multi planar MR imaging was performed of the right knee. The anterior and posterior cruciate ligaments are intact. The quadriceps and patellar tendons are intact. There is abnormal linear signal in the anterior horn of the lateral meniscus, as well as signal in the posterior horn of the medial meniscus consistent with meniscal tears. The medial and lateral collateral ligaments appear intact. The medial and lateral retinacula appear intact. There is no evidence of bone marrow edema or osteochondral defect. A moderate joint effusion is present. IMPRESSION: Abnormal linear signal in both the anterior horn of the lateral meniscus and posterior horn of the medial meniscus, consistent with tears. Moderate joint effusion. Reviewed, Interpreted and Dictated by Milind Roa MD Transcribed by Bhavna Galvan Authenticated and [facility]
== END 2025-09-20 23:59 | disposition home or self-care (01) ==
LOC: RAD 08:53
PROVIDERS: PCP Internal Medicine; Visit Provider Internal Medicine
DX: S83.201A Bucket-handle tear of unspecified meniscus, current injury, left knee, initial encounter (principal); R93.6 Abnormal findings on diagnostic imaging of limbs
CPT/HCPCS: 73721